=== PATIENT | female | born 1965 | race Caucasian/White ===

== ENCOUNTER 2020-07-13 13:18 | Outpatient (REF) | payer OTHER, SELFPAY ==
--- NOTE | 2020-07-13 | MM_ITS ---
EXAMINATION: MM SCREENING DIGITAL BREAST TOMOSYNTHESIS, BILATERAL CLINICAL INFORMATION: Screening. Asymptomatic. Family history breast cancer in mother, age 53. Personal history benign left breast biopsy. The lifetime risk of breast cancer based on the Tyrer-Cuzick Model is 25%. COMPARISON: Mammography: 08/15/2018; outside mammography 02/28/2017, 12/30/2014 ([facility]). TECHNIQUE: Digital breast tomosynthesis is performed in both the craniocaudal and mediolateral oblique views along with computer-aided detection (CAD). Synthesized 2D images are generated from the tomosynthesis. FINDINGS: There are scattered areas of fibroglandular density (ACR BI-RADS breast composition Category b). There are no significant masses, abnormal calcifications, or other abnormalities. Parenchymal pattern is similar to prior studies. Again, there is a stable circumscribed oval nodule mid outer right breast. There is no developing density. The axilla and skin contours are unremarkable. No significant changes from prior studies. MM/MM tomosynthesis screening BI IMPRESSION: No mammographic evidence of malignancy. ASSESSMENT: BI-RADS 2: Benign RECOMMENDATION: 1. Routine annual mammography screening. 2. The lifetime risk of breast cancer based on the Tyrer-Cuzick Model is 25%. Additional annual adjunct screening with breast MRI may be of benefit in women with a risk score of 20% or greater. This patient's information was entered into a reminder system with a target due date for their next mammogram.
== END 2020-07-13 13:19 | disposition home or self-care (01) ==
LOC: HO.MAMMO 13:18
PROVIDERS: PCP Nurse Practitioner Family; Visit Provider Nurse Practitioner Family
DX: Z12.31 Encounter for screening mammogram for malignant neoplasm of breast (principal)
CPT/HCPCS: 77063; 77067

== ENCOUNTER 2020-09-15 08:20 | Outpatient (REF) | payer OTHER, SELFPAY ==
[2020-09-15 09:33] LABS: Anion Gap 14 (12-20); Blood Urea Nitrogen 13 mg/dL (9-16); Carbon Dioxide 23 mmol/L (22-29); Chloride 104 mmol/L (96-108); Cholesterol 180 mg/dL; Estimated Glomerular Filt Rate > 60; Glucose Random 111 mg/dL (60-115); HDL Cholesterol 56 mg/dL; Potassium 4.3 mmol/l (3.3-5.1); Sodium 137 mmol/L (135-145); Triglycerides 433 mg/dL
[2020-09-15 09:39] LABS: Alanine Aminotransferase 33 U/L (0-31); Albumin Level 4.5 g/dL (3.5-5.0); Alkaline Phosphatase 118 U/L (39-117); Anion Gap 16 (12-20); Aspartate Amino Transferase 32 U/L (5-31); Bilirubin Total 0.6 mg/dL (0.0-1.0); Blood Urea Nitrogen 13 mg/dL (9-16); Calcium 9.1 mg/dL (8.4-10.2); Carbon Dioxide 22 mmol/L (22-29); Chloride 104 mmol/L (96-108); Estimated Glomerular Filt Rate > 60; Glucose Random 110 mg/dL (60-115); Potassium 4.3 mmol/l (3.3-5.1); Sodium 138 mmol/L (135-145); Total Protein 7.2 g/dL (6.5-8.0)
[2020-09-15 09:56] LABS: Thyroid Stimulating Hormone 2.23 uIU/mL (0.32-4.0)
[2020-09-16 18:33] LABS: Calcium (PTHI) 9.4 mg/dL (8.6-10.4); PTHI 140 pg/mL (14-64)
== END 2020-09-15 08:21 | disposition home or self-care (01) ==
LOC: HO.LAB 08:20
PROVIDERS: Absent Provider Internal Medicine; PCP Nurse Practitioner Family; Visit Provider Nurse Practitioner Family
DX: E03.9 Hypothyroidism, unspecified (principal); E78.2 Mixed hyperlipidemia; I10 Essential (primary) hypertension; E21.3 Hyperparathyroidism, unspecified; E04.1 Nontoxic single thyroid nodule; E55.9 Vitamin D deficiency, unspecified
CPT/HCPCS: 80048; 80053; 80061; 82306; 82330; 83735; 83970; 84100; 84443

== ENCOUNTER → 2020-09-21 07:33 | Outpatient (BNVA) | payer OTHER, SELFPAY | PROVIDERS: PCP Nurse Practitioner Family; Referring Provider Nurse Practitioner Family; Visit Provider Internal Medicine | DX: Z76.89 Persons encountering health services in other specified circumstances (principal) ==

== ENCOUNTER 2020-09-28 14:00 | Outpatient (REF) | payer OTHER, SELFPAY ==
[2020-09-28 22:20] LABS: Total Volume 24 Hour Urine 3900 mL
[2020-09-28 22:29] LABS: Creatinine, 24Hr Urine 1.4 G/Day (1.0-2.0); Creatinine, mg/dL 35.84
[2020-09-29 17:27] LABS: Calcium, 24 Hr Urine 144 mg/24 h; Calcium/Creatinine Ratio 97 mg/g creat (30-275); Creatinine 24Hr Urine 1.48 g/24 h (0.50-2.15)
== END 2020-09-28 14:01 | disposition home or self-care (01) ==
LOC: HO.LNP 14:00
PROVIDERS: Visit Provider Internal Medicine
DX: E21.3 Hyperparathyroidism, unspecified (principal)
CPT/HCPCS: 82340; 82570

== ENCOUNTER 2020-10-07 09:43 | Outpatient (REF) | payer OTHER, SELFPAY ==
[2020-10-07 10:08] LABS: COVID-19 Test Negative (Negative); IDNOW Serial# 55D5AD1C
== END 2020-10-07 09:44 | disposition home or self-care (01) ==
LOC: HO.EMPCOV 09:43
PROVIDERS: Visit Provider Internal Medicine
DX: Z20.822 Contact with and (suspected) exposure to COVID-19 (principal)
CPT/HCPCS: 36415; 87635; C9803

== ENCOUNTER 2020-10-19 11:37 | Outpatient (REF) | payer OTHER, SELFPAY ==
[2020-10-19 11:51] LABS: COVID-19 Test Negative (Negative)
== END 2020-10-19 11:38 | disposition home or self-care (01) ==
LOC: HO.EMPCOV 11:37
PROVIDERS: Visit Provider Internal Medicine
DX: Z20.822 Contact with and (suspected) exposure to COVID-19 (principal)
CPT/HCPCS: 36415; 87635; C9803

== ENCOUNTER 2020-10-21 10:32 | Outpatient (REF) | payer OTHER, SELFPAY ==
[2020-10-21 10:49] LABS: COVID-19 Test Negative (Negative)
== END 2020-10-21 10:33 | disposition home or self-care (01) ==
LOC: HO.EMPCOV 10:32
PROVIDERS: Visit Provider Internal Medicine
DX: Z20.822 Contact with and (suspected) exposure to COVID-19 (principal)
CPT/HCPCS: 36415; 87635; C9803

== ENCOUNTER → 2020-11-18 08:58 | Outpatient (BNVA) | payer OTHER, SELFPAY | PROVIDERS: PCP Nurse Practitioner Family; Visit Provider Internal Medicine ==

== ENCOUNTER 2020-12-02 15:47 | Outpatient (REF) | payer OTHER, SELFPAY ==
[2020-12-02 16:48] LABS: Albumin Level 4.4 g/dL (3.5-5.0); Calcium 9.3 mg/dL (8.4-10.2); Estimated Glomerular Filt Rate > 60; Phosphorus 4.2 mg/dL (2.7-4.5)
[2020-12-02 17:13] LABS: Free T4 (Free Thyroxine) 1.02 ng/dL (0.71-1.85); Thyroid Stimulating Hormone 2.04 uIU/mL (0.32-4.0); Vitamin D 25-OH Total 42.9 ng/mL (>30)
[2020-12-03 13:42] LABS: Calcium (PTHI) 9.4 mg/dL (8.6-10.4); PTHI 148 pg/mL (14-64)
[2020-12-03 18:01] LABS: Thyroglobulin Antibodies <1 IU/mL (< or = 1); Thyroid Peroxidase Antibodies 1 IU/mL (<9)
== END 2020-12-02 15:48 | disposition home or self-care (01) ==
LOC: HO.LAB 15:47
PROVIDERS: PCP Nurse Practitioner Family; Visit Provider Internal Medicine
DX: E55.9 Vitamin D deficiency, unspecified (principal); E06.3 Autoimmune thyroiditis; E04.2 Nontoxic multinodular goiter; E21.3 Hyperparathyroidism, unspecified
CPT/HCPCS: 36415; 82040; 82306; 82310; 82330; 82565; 83970; 84100; 84439; 84443; 86376; 86800

== ENCOUNTER → 2021-01-13 07:43 | Outpatient (BNVA) | payer OTHER, SELFPAY | PROVIDERS: PCP Nurse Practitioner Family; Visit Provider Internal Medicine ==

== ENCOUNTER 2021-01-21 09:01 | Outpatient (RCR) | payer OTHER, SELFPAY ==
[2021-01-21 09:11] VITALS: BP 124/76
== END 2021-02-18 12:34 | disposition other institution (70) ==
LOC: HO.PT 09:01
PROVIDERS: PCP Nurse Practitioner Family; Visit Provider Podiatrist Foot & Ankle Surgery
DX: M79.672 Pain in left foot (principal); M79.671 Pain in right foot
CPT/HCPCS: 97110; 97161

== ENCOUNTER 2021-07-29 13:38 | Outpatient (REF) | payer OTHER, SELFPAY ==
--- NOTE | ~2021-07-29 | MM_ITS ---
EXAMINATION: BONE DENSITOMETRY CLINICAL INDICATION: Other specified disorders of bone density and structure. COMPARISON: Baseline BD dated 06/27/2019. TECHNIQUE: Using a [employer] DXA System (software version: 13.1) manufactured by [employer], dual-energy x-ray absorptiometry was performed of the lumbar spine, left hip, and left forearm radius 33%. The images are of good technical quality. Summary results are attached. FINDINGS: AP SPINE L1-L4: Current: BMD 0.952 g/cm2, Z-score -1.3, T-score -1.9, osteopenia, 2.9% decrease from baseline (<5% change is not significant). Baseline: BMD 0.980 g/cm2. LEFT FEMUR, NECK: Current: BMD 0.836 g/cm2, Z-score -0.6, T-score -1.5, osteopenia. Baseline: BMD 0.907 g/cm2. LEFT FEMUR, TOTAL: Current: BMD 0.930 g/cm2, Z-score -0.1, T-score -0.6, normal, 3.5% decrease from baseline (<5% change is not significant). Baseline: BMD 0.964 g/cm2. LEFT FOREARM RADIUS 33%: BMD 0.680 g/cm2, Z-score -1.8, T-score -2.2, osteopenia, 8.5% decrease from baseline (<5% change is not significant). Baseline: BMD 0.743 g/cm2. IDENTIFIED RISK FACTORS: Hyperparathyroidism, low calcium intake, thiazide, menopause. HISTORY OF FRACTURE: Fingers. MEDICATIONS: None listed. MM/XR DEXA appendicular skeleton IMPRESSION: 1. DIAGNOSIS: Osteopenia based on the lowest T-score value of -2.2 in the forearm radius 33% applying World Health Organization criteria. 2. 10-YEAR FRACTURE RISK PREDICTION, FRAX: Major osteoporotic fracture (clinical spine, forearm, hip or shoulder) 10.6%. Hip fracture 0.9%. 3. Treatment Recommendations: NOF guidelines recommend consideration for treatment in postmenopausal women and men age 50 and older presenting with the following: -A hip or vertebral (clinical or morphometric) fracture. -T-score less than or equal to -2.5 at the femoral neck or spine after appropriate evaluation to exclude secondary causes. -Low bone mass at the hip or spine and a 10-year fracture probability by FRAX of greater than or equal to 3% for hip fracture or greater than or equal to 20% for major osteoporotic fracture based on the [place] adapted WHO algorithm. 4. Other Recommendations: All treatment decisions require clinical judgment and consideration of individual patient factors, including patient preferences, comorbidities, previous drug use, risk factors not captured in the FRAX model (e.g. frailty, falls, vitamin D deficiency, increased bone turnover, interval significant decline in bone density) and possible under or overestimation of fracture risk by FRAX. Additional medical evaluation for secondary cause of low bone mineral density may be appropriate. FUTURE SCAN RECOMMENDATION: People with diagnosed cases of osteoporosis or at high risk for fracture should have regular bone mineral density tests. For patients eligible for Medicare, routine testing is allowed once every 2 years. The testing frequency can be increased to one year for patients who have rapidly progressing disease, those who are receiving or discontinuing medical therapy to restore bone mass, or have additional risk factors.
== END 2021-07-29 13:39 | disposition home or self-care (01) ==
LOC: HO.MAMMO 13:38
PROVIDERS: PCP Nurse Practitioner Family; Visit Provider Internal Medicine
DX: Z13.820 Encounter for screening for osteoporosis (principal); M85.80 Other specified disorders of bone density and structure, unspecified site; E21.3 Hyperparathyroidism, unspecified; Z78.0 Asymptomatic menopausal state; Z79.899 Other long term (current) drug therapy
CPT/HCPCS: 77081

== ENCOUNTER 2021-09-15 13:19 | Outpatient (REF) | payer OTHER, SELFPAY ==
--- NOTE | ~2021-09-15 | MM_ITS ---
EXAMINATION: MM SCREENING DIGITAL BREAST TOMOSYNTHESIS, BILATERAL CLINICAL INFORMATION: Screening. Asymptomatic. Family history breast cancer, mother. The lifetime risk of breast cancer based on the Tyrer-Cuzick Model is 25%. COMPARISON: Mammography: 07/13/2020, 08/07/2018, 02/28/2017 TECHNIQUE: Digital breast tomosynthesis is performed in both the craniocaudal and mediolateral oblique views along with computer-aided detection (CAD). Synthesized 2D images are generated from the tomosynthesis. Additional exaggerated right CC view is provided. FINDINGS: There are scattered areas of fibroglandular density (ACR BI-RADS breast composition Category b). There are no significant masses, abnormal calcifications, or other abnormalities. Parenchymal pattern is similar to prior studies. There is no developing density or architectural abnormality. The axilla and skin contours are unremarkable. No significant changes. MM/MM tomosynthesis screening BI IMPRESSION: No mammographic evidence of malignancy. ASSESSMENT: BI-RADS 1: Negative RECOMMENDATION: 1. Routine annual mammography screening. 2. The lifetime risk of breast cancer based on the Tyrer-Cuzick Model is 25%. Additional annual adjunct screening with breast MRI may be of benefit in women with a risk score of 20% or greater. This patient's information was entered into a reminder system with a target due date for their next mammogram.
== END 2021-09-15 13:20 | disposition home or self-care (01) ==
LOC: HO.MAMMO 13:19
PROVIDERS: Visit Provider Nurse Practitioner Family
DX: Z12.31 Encounter for screening mammogram for malignant neoplasm of breast (principal)
CPT/HCPCS: 77063; 77067

== ENCOUNTER 2021-10-07 08:20 | Outpatient (REF) | payer OTHER, SELFPAY ==
[2021-10-07 09:33] LABS: Anion Gap 12 (12-20); Blood Urea Nitrogen 12 mg/dL (9-16); Calcium 9.2 mg/dL (8.4-10.2); Carbon Dioxide 25 mmol/L (22-29); Chloride 107 mmol/L (96-108); Cholesterol 188 mg/dL; Estimated Glomerular Filt Rate > 60; Glucose Random 107 mg/dL (60-115); HDL Cholesterol 55 mg/dL; LDL Cholesterol Calculated 64 mg/dl; Potassium 4.4 mmol/L (3.3-5.1); Sodium 140 mmol/L (135-145); Triglycerides 346 mg/dL
[2021-10-07 09:34] LABS: Alanine Aminotransferase 52 U/L (0-31); Alkaline Phosphatase 99 U/L (39-117); Anion Gap 15 (12-20); Aspartate Amino Transferase 50 U/L (5-31); Bilirubin Total 0.5 mg/dL (0.0-1.0); Blood Urea Nitrogen 11 mg/dL (9-16); Calcium 9.1 mg/dL (8.4-10.2); Carbon Dioxide 24 mmol/L (22-29); Chloride 107 mmol/L (96-108); Estimated Glomerular Filt Rate > 60; Glucose Random 102 mg/dL (60-115); Phosphorus 4.1 mg/dL (2.7-4.5); Potassium 4.5 mmol/L (3.3-5.1); Sodium 141 mmol/L (135-145); Total Protein 6.7 g/dL (6.5-8.0)
[2021-10-07 09:58] LABS: Thyroid Stimulating Hormone 2.86 uIU/mL (0.32-4.0); Vitamin D 25-OH Total 19.8 ng/mL (>30)
[2021-10-08 13:06] LABS: PTHI 139 pg/mL (14-64)
[2021-10-13 16:10] LABS: N-Telopeptide 49 (see note); NTXCreaRU 81 mg/dL (20-275)
== END 2021-10-07 08:21 | disposition home or self-care (01) ==
LOC: HO.LAB 08:20
PROVIDERS: Absent Provider Nurse Practitioner Family; PCP Nurse Practitioner Family; Visit Provider Internal Medicine
DX: E04.2 Nontoxic multinodular goiter (principal); E21.3 Hyperparathyroidism, unspecified; I10 Essential (primary) hypertension; E55.9 Vitamin D deficiency, unspecified
CPT/HCPCS: 36415; 80048; 80053; 80061; 82306; 82523; 83970; 84100; 84439; 84443

== ENCOUNTER → 2021-12-15 12:58 | Outpatient (BNVA) | payer OTHER, SELFPAY | PROVIDERS: PCP Nurse Practitioner Family; Visit Provider Internal Medicine | DX: Z13.89 Encounter for screening for other disorder (principal) ==

== ENCOUNTER → 2021-12-27 11:23 | Outpatient (BNVA) | payer OTHER, SELFPAY | PROVIDERS: PCP Nurse Practitioner Family; Visit Provider Physician Assistant | DX: Z13.89 Encounter for screening for other disorder (principal) ==

== ENCOUNTER 2022-01-07 10:17 | Outpatient (REF) | payer OTHER, SELFPAY ==
[2022-01-07 11:43] LABS: Alanine Aminotransferase 40 U/L (0-31); Albumin Level 4.5 g/dL (3.5-5.0); Alkaline Phosphatase 101 U/L (39-117); Anion Gap 13 (12-20); Aspartate Amino Transferase 44 U/L (5-31); Bilirubin Total 0.7 mg/dL (0.0-1.0); Blood Urea Nitrogen 11 mg/dL (9-16); C Reactive Protein 0.09 mg/dL (< or = 0.50); Carbon Dioxide 27 mmol/L (22-29); Chloride 101 mmol/L (96-108); Erythrocyte Sedimentation Rate 7 MM/HR (0-20); Estimated Glomerular Filt Rate > 60; Glucose Random 97 mg/dL (60-115); Potassium 4.6 mmol/L (3.3-5.1); Sodium 136 mmol/L (135-145); Total Protein 7.2 g/dL (6.5-8.0)
[2022-01-07 12:00] LABS: HBS Num1 0.63 mIU/mL (0-7.99); HBc Num1 0.05 S/CO (0.00-0.79); HBsAGNum1 0.25 S/CO (0.00-0.99); Hepatitis A Antibody IgM 0.27 Index (0-0.79); Hepatitis B Core Antibody Nonreactive (Nonreactive); Hepatitis B Surface Antigen Negative (Negative); ~HepC Num1 0.09 S/CO (0.00-0.79); ~Hepatitis A Antibody IgM Nonreactive (Nonreactive); ~Hepatitis B Surface Antibody NONREACTIVE (Nonreactive); ~Hepatitis C Antibody Nonreactive (Nonreactive)
[2022-01-08 14:42] LABS: Alpha 1 Anti-trypsin 114 mg/dL (83-199); Ceruloplasmin 29 mg/dL (18-53)
[2022-01-10 19:32] LABS: Anti Nuclear Antibody Screen NEGATIVE (NEGATIVE)
[2022-01-11 21:27] LABS: Endomysial IgA Antibody Negative (Negative)
[2022-01-12 13:11] LABS: Smooth Muscle Antibody <20 U (<20)
[2022-01-13 12:32] LABS: Mitochondrial Antibodies NEGATIVE (NEGATIVE)
[2022-01-15 14:07] LABS: Transglutaminase IgA <1.0 U/mL
== END 2022-01-07 10:18 | disposition home or self-care (01) ==
LOC: HO.LAB 10:17
PROVIDERS: PCP Nurse Practitioner Family; Visit Provider Physician Assistant
DX: R74.8 Abnormal levels of other serum enzymes (principal); R19.7 Diarrhea, unspecified; R74.01 Elevation of levels of liver transaminase levels; R79.89 Other specified abnormal findings of blood chemistry
CPT/HCPCS: 36415; 80053; 82103; 82390; 85652; 86015; 86038; 86039; 86140; 86231; 86255; 86256; 86364; 86704; 86706; 86709; 86803; 87340

== ENCOUNTER 2022-02-03 08:23 | Outpatient (REF) | payer OTHER, SELFPAY ==
--- NOTE | ~2022-02-03 | US_ITS ---
EXAMINATION: US COMPLETE ABDOMEN WITH LIVER ELASTOGRAPHY CLINICAL INFORMATION: Abnormal LFTs. COMPARISON: Ultrasound 08/02/2018 TECHNIQUE: Real-time imaging of the abdominal viscera. Noninvasive ultrasound liver fibrosis assessment is performed using [employer] point quantification shear wave elastography (2D-SWE) with a C5-2 MHz transducer. Multiple elastography samples are obtained. FINDINGS: PANCREAS: Normal. The visualized pancreatic head and body are normal in appearance. The remainder of the pancreas is obscured from visualization by the overlying bowel gas. ABDOMINAL AORTA: The proximal and distal aortic segments are normal in caliber. Mid abdominal aorta is normal caliber. INFERIOR VENA CAVA: Visualized portions are normal. LIVER: Normal. The liver demonstrates normal size, contour and echogenicity. No focal lesion or intrahepatic biliary duct dilatation. The right lobe measures 15.1 cm in length. The left lobe measures 10.2 cm in length. Portal flow is hepatopetal. Shear wave liver elastography median stiffness is 1.96 m/s (reference: Normal median stiffness is 1.3 m/s or less). IQR/median stiffness to assess sampling precision is 0.11 (reference: Good quality data set is IQR/median stiffness of 0.15 or less). GALLBLADDER: Normal. The gallbladder is physiologically distended without evidence of stones, sludge, polyps, wall thickening or pericholecystic fluid. COMMON BILE DUCT: Normal in caliber measuring 0.7 cm in diameter. RIGHT KIDNEY: Normal. No hydronephrosis. No renal calculi or focal parenchymal lesions. The kidney measures 11.0 cm in maximum dimension. LEFT KIDNEY: Normal. No hydronephrosis. No renal calculi or focal parenchymal lesions. The kidney measures 10.9 cm in maximum dimension. Slightly lobulated and duplicated renal artery. SPLEEN: Normal. The spleen measures 7.2 cm in maximum dimension. FREE FLUID: None. US/US abdomen comp w elastography IMPRESSION: 1. Slightly lobulated duplicated renal artery. No echogenic stones or hydronephrosis. 2. Liver Elastography: Median liver stiffness 1.96 m/s corresponds to cACLD suggestive. REFERENCE: Society of Radiologists in Ultrasound Liver Stiffness Thresholds (2020): LIVER STIFFNESS THRESHOLDS: *Liver Stiffness equal or less than 1.3 m/s: High probability of being normal. *Liver Stiffness less than 1.7 m/s: In the absence of other known clinical signs, rules out compensated advanced chronic liver disease. *Liver Stiffness 1.7-2.1 m/s: Suggestive of compensated advanced chronic liver disease but need further test for confirmation. *Liver Stiffness over 2.1 m/s: Rules in compensated advanced chronic liver disease. *Liver Stiffness over 2.4 m/s: Suggestive of clinically significant portal hypertension. QUALITY OF DATA SET: *IQR/Median value equal or less than 0.15 implies a quality data set. *IQR/Median value over 0.15 implies a poor quality data set. SIGNIFICANT CHANGE FROM PRIOR EXAM: Significant change if liver stiffness measurement is 10% or greater from prior exam. OTHER CONSIDERATIONS: The stage of liver fibrosis may be overestimated in the setting of acute hepatitis, liver inflammation, elevated liver function tests, hepatic vascular congestion, obstructive cholestasis, non-fasting state, and infiltrative diseases such as amyloidosis and lymphoma. In some patients with NAFLD, the liver stiffness thresholds for compensated advanced chronic liver disease may be lower. In causes other than viral hepatitis and NAFLD, liver stiffness thresholds are not well established.
== END 2022-02-03 08:24 | disposition home or self-care (01) ==
LOC: HO.US 08:23
PROVIDERS: Visit Provider Physician Assistant
DX: R79.89 Other specified abnormal findings of blood chemistry (principal)
CPT/HCPCS: 76705; 76981

== ENCOUNTER 2022-12-01 11:08 | Outpatient (REF) | payer OTHER, SELFPAY ==
[2022-12-01 12:48] LABS: Alanine Aminotransferase 30 U/L (0-31); Albumin Level 4.7 g/dL (3.5-5.0); Alkaline Phosphatase 103 U/L (39-117); Anion Gap 13 (12-20); Aspartate Amino Transferase 30 U/L (5-31); Bilirubin Total 0.6 mg/dL (0.0-1.0); Blood Urea Nitrogen 10 mg/dL (9-16); Calcium 9.3 mg/dL (8.4-10.2); Carbon Dioxide 28 mmol/L (22-29); Chloride 101 mmol/L (96-108); Estimated Glomerular Filt Rate > 60; Glucose Random 100 mg/dL (60-115); Phosphorus 3.1 mg/dL (2.7-4.5); Potassium 4.2 mmol/L (3.3-5.1); Sodium 138 mmol/L (135-145); Total Protein 7.4 g/dL (6.5-8.0)
[2022-12-01 13:13] LABS: Free T4 (Free Thyroxine) 1.19 ng/dL (0.71-1.85); Thyroid Stimulating Hormone 1.94 uIU/mL (0.32-4.0)
[2022-12-05 14:04] LABS: Calcium (PTHI) 9.8 mg/dL (8.6-10.4); PTHI 87 pg/mL (16-77)
[2022-12-08 18:54] LABS: N-Telopeptide 27 (see note); NTXCreaRU 22 mg/dL (20-275)
== END 2022-12-01 11:09 | disposition home or self-care (01) ==
LOC: HO.LAB 11:08
PROVIDERS: PCP Nurse Practitioner Family; Visit Provider Internal Medicine
DX: E55.9 Vitamin D deficiency, unspecified (principal); E06.3 Autoimmune thyroiditis; E04.2 Nontoxic multinodular goiter; E21.3 Hyperparathyroidism, unspecified
CPT/HCPCS: 36415; 80053; 82306; 82523; 83970; 84100; 84439; 84443

== ENCOUNTER → 2022-12-15 14:19 | Outpatient (BNVA) | payer OTHER, SELFPAY | PROVIDERS: PCP Nurse Practitioner Family; Visit Provider Internal Medicine | DX: Z13.89 Encounter for screening for other disorder (principal) ==

== ENCOUNTER 2022-12-19 14:06 | Outpatient (REF) | payer OTHER, SELFPAY ==
--- NOTE | ~2022-12-19 | MM_ITS ---
EXAMINATION: MM SCREENING DIGITAL BREAST TOMOSYNTHESIS, BILATERAL CLINICAL INFORMATION: Screening. Asymptomatic. Family history breast cancer, mother. The lifetime risk of breast cancer based on the Tyrer-Cuzick Model is 18%. COMPARISON: Mammography: 09/15/2021, 07/13/2020, 08/15/2018 TECHNIQUE: Digital breast tomosynthesis is performed in both the craniocaudal and mediolateral oblique views along with computer-aided detection (CAD). Synthesized 2D images are generated from the tomosynthesis. FINDINGS: There are scattered areas of fibroglandular density (ACR BI-RADS breast composition Category b). There are no significant masses, abnormal calcifications, or other abnormalities. No architectural abnormality or developing density or significant change from prior studies. The axilla are unremarkable. Skin contours are smooth. MM/MM tomosynthesis screening BI IMPRESSION: No mammographic evidence of malignancy. ASSESSMENT: BI-RADS 1: Negative RECOMMENDATION: Routine annual mammography screening. This patient's information was entered into a reminder system with a target due date for their next mammogram.
== END 2022-12-19 14:07 | disposition home or self-care (01) ==
LOC: HO.MAMMO 14:06
PROVIDERS: PCP Nurse Practitioner Family; Visit Provider Nurse Practitioner Family
DX: Z12.31 Encounter for screening mammogram for malignant neoplasm of breast (principal)
CPT/HCPCS: 77063; 77067

== ENCOUNTER 2023-01-04 08:51 | Outpatient (REF) | payer OTHER, SELFPAY ==
--- NOTE | ~2023-01-04 | US_ITS ---
EXAMINATION: US THYROID CLINICAL INFORMATION: Nontoxic multinodular goiter. COMPARISON: Ultrasound soft tissue head/neck thyroid dated 03/11/2020 and 09/25/2019. TECHNIQUE: Linear transducer grayscale and color Doppler examination with attention to the region of the thyroid. FINDINGS: SIZE: Measurements of the thyroid lobes and nodules are given in sagittal, anteroposterior and transverse dimensions respectively. Right Thyroid Lobe: 3.5 x 1.2 x 1.2 cm, volume 2.6 mL. Previously 3.3 x 1.3 x 1.2 cm, volume 2.7 mL. Parenchyma: The gland echotexture is homogeneous. Thyroid vascularity is normal. Left Thyroid Lobe: 3.1 x 0.7 x 1.3 cm, volume 1.5 mL. Previously 2.9 x 0.9 x 1.2 cm, volume 1.6 mL. Parenchyma: The gland echotexture is homogeneous. Thyroid vascularity is normal. Isthmus: 0.2 cm in maximum AP dimension. Previously 0.2 cm. Estimated total number of nodules greater than or equal to 1 cm: 0. [place]pper nodules are described as follows: 1. Location: Left mid. Size: 1.0 x 0.4 x 0.5 cm, volume 0.1 mL. Previously: 1.0 x 0.5 x 0.5 cm, volume 0.1 mL. Nodule characteristics: Composition: Solid (2). Echogenicity: Hypoechoic (2). Shape: Not taller than wide (0). Margins: Ill-defined (0). Echogenic Foci: None (0). ACR TI-RADS total points: 4 ACR TI-RADS category: 4 Significant change in size (>/= 20% in 2 dimensions and minimal increase of 2 mm or 50% or greater increase in volume): No Change in features: No Change in ACR TI-RADS risk category: No NODES: No lymphadenopathy is seen in the tissue surrounding the thyroid gland. US/US thyroid IMPRESSION: Stable left thyroid nodule. According to TI RADS criteria, continued ultrasound follow-up in one, 2 and 4 years recommended. ACR TI-RADS RECOMMENDATION REFERENCE: Ultrasound-guided fine-needle aspiration, followup ultrasound, no further follow up. * TR1 (0 point) and TR2 (2 points): No FNA or follow up * TR3 (3 points): FNA if more than or equal to 2.5 cm in maximum dimension, followup ultrasound in 1, 3 and 5 years if 1.5 to 2.4 cm in maximum dimension. * TR4 (4-6 points): FNA if more than or equal to 1.5 cm in maximum dimension, followup ultrasound in 1, 2, 3 and 5 years if 1 to 1.4 cm in maximum dimension. * TR5 (more than or equal to 7 points): FNA if more than or equal to 1 cm in maximum dimension, followup ultrasound every year for 5 years if 0.5 to 0.9 cm in maximum dimension. * TR3, TR4 or TR5 nodules that are below the size threshold for follow up receive no follow up.
== END 2023-01-04 08:52 | disposition home or self-care (01) ==
LOC: HO.US 08:51
PROVIDERS: PCP Nurse Practitioner Family; Visit Provider Internal Medicine
DX: E04.2 Nontoxic multinodular goiter (principal)
CPT/HCPCS: 76536

== ENCOUNTER 2023-01-24 08:10 | Outpatient (REF) | payer OTHER, SELFPAY | END 2023-01-24 08:11 | disposition home or self-care (01) | LOC: HO.LAB 08:10 | PROVIDERS: PCP Nurse Practitioner Family; Visit Provider Nurse Practitioner Family | DX: Z13.89 Encounter for screening for other disorder (principal) ==

== ENCOUNTER 2023-02-01 08:19 | Outpatient (REF) | payer OTHER, SELFPAY ==
[2023-02-01 10:14] LABS: Anion Gap 16 (12-20); Blood Urea Nitrogen 13 mg/dL (9-16); Calcium 9.4 mg/dL (8.4-10.2); Carbon Dioxide 25 mmol/L (22-29); Chloride 102 mmol/L (96-108); Cholesterol 199 mg/dL; Estimated Glomerular Filt Rate > 60; Glucose Random 81 mg/dL (60-115); HDL Cholesterol 64 mg/dL; LDL Cholesterol Calculated 63 mg/dl; Potassium 4.5 mmol/L (3.3-5.1); Sodium 138 mmol/L (135-145); Triglycerides 362 mg/dL
[2023-02-01 10:30] LABS: Thyroid Stimulating Hormone 4.29 uIU/mL (0.32-4.0)
== END 2023-02-01 08:20 | disposition home or self-care (01) ==
LOC: HO.LAB 08:19
PROVIDERS: PCP Nurse Practitioner Family; Visit Provider Nurse Practitioner Family
DX: E03.9 Hypothyroidism, unspecified (principal); I10 Essential (primary) hypertension
CPT/HCPCS: 36415; 80048; 80061; 84443

== ENCOUNTER 2023-06-02 12:59 | Outpatient (AMB) | payer OTHER, SELFPAY ==
--- NOTE | 2023-06-02 08:39 | A.OFFVIS_ITS ---
Intake Intake Visit Reasons: LDCT SD Allergies No Known Allergies [No Known Allergies*] Allergy (Verified 12/15/22 14:34) HPI LDCT SD HPI Details Initial visit for this 58yo former smoker with a 25PYH. Patient started smoking at age 13 for 42 years at 1/2-1ppd. She quit in 2019 . Denies marijuana use. Denies second hand smoke exposure. Denies exposure to chemicals or substances like asbestos. . Denies known family history of lung cancer. Reports personal history of cancers. History BCC skin cancer on cheek. Denies chest CT in last year. . Denies recent travel outside the . Has been to [facility] and [facility]. Denies recent respiratory illness or recent hospitalization for respiratory issues. Denies testing positive for COVID. Admits receiving COVID Vaccine. x 2. . Denies fever, chills, new/worsening cough, hemoptysis, hoarseness or dysphagia. Denies significant chest pain, significant dyspnea or unintentional weight loss. Patient Lung Cancer Screening Questionnaire reviewed with patient by provider. . Shared Decision Making Completed. Patient meets criteria. Discussed in detail with patient, the risk vs benefit of LDCT screening. Patient consents to proceed with scan. Discussed smoking cessation. COUNTS INCLUDE 234 BEDS AT THE [facility] Medical History (Updated 06/02/23 @ 13:04 by Starr Gee PA-C) Personal history of nicotine dependence Chuck's disease Multinodular thyroid Hyperparathyroidism Vitamin D deficiency Osteopenia (~2018) Postmenopausal (~2015) Abnormal LFTs Transaminitis Surgical History (Updated 05/05/23 @ 12:26 by Starr Gee PA-C) History of colonoscopy History of lumpectomy Family History Father CVD (cardiovascular disease) Mother Breast cancer Sister Hyperparathyroidism Social History (Updated 06/02/23 @ 13:04 by Starr Gee PA-C) Household Members: None Alcohol intake: current Alcohol intake frequency: holidays/special occasions only Patient Tobacco Use Status: Former Tobacco user Quit Date: 2019 Years Smoked: onset 13yo, 1/2-1ppd x 42yrs, 25pyh - quit 2019 Current occupational status: employed Current occupation: [employer] [place] Assessment & Plan Assessment & Plan (1) Personal history of nicotine dependence: Comment: (former smoker, onset 13yo, 1/2-1ppd x 42yrs, 25pyh - quit 2019) Code(s): Z87.891 - Personal history of nicotine dependence Plan: - SDM visit completed today in office. - Patient meets criteria for LDCT for lung cancer screening purposes and is asymptomatic. - Smoking cessation counseling offered. Patients can always call [phone]. - Will arrange for a LDCT scan of the chest for screening purposes at [facility]. - Risks, benefits, and alternatives were discussed in detail and the patient agrees to proceed. - Risks discussed include but are not limited to: radiation exposure, anxiety during testing and while awaiting results, false negatives, false positives and possibility of additional intervention such as further imaging or surgical procedures for benign disease. - Benefits are obviously detection of lung cancer at an early stage which can lead to improved outcomes. - Discussed the importance of screening program compliance with adherence to yearly LDCT scan as scheduled - or sooner interval scans for personalized screening regimen. - Discussed follow up plan. Our office will send a letter discussing results and if needed set up phone call and office visit based on CT findings. - Patient educated on results categorization and the management decisions for suspicious findings potentially found on the screening LDCT scan. Any patient with a Lung RADS score of 3 or 4 will be reviewed by a multidisciplinary team at [facility] to form a plan of action in regards to scan findings. - If further work up is warranted for a suspicious lung finding this will be followed by the Lung Cancer Screening program in conjunction with the Thoracic Surgery Department at [facility]. - A copy of the office note and LDCT will be sent to the patient's PCP - as well as documentation on any associated further plans of care. - Incidental findings on LDCT are the PCP's responsibility. These findings are indicated with an S finding on the LDCT Assessment. A note discussing the findings will be sent to the PCP who is then responsible for further management. - All questions answered.? Coding Level of Care Code Lung Cancer Screening [id number] Diagnoses Personal history of nicotine dependence Z87.891
== END 2023-06-02 13:25 | disposition home or self-care (01) ==
PROVIDERS: PCP Nurse Practitioner Family; Visit Provider Physician Assistant Medical
DX: Z87.891 Personal history of nicotine dependence (principal)
CPT/HCPCS: G0296

== ENCOUNTER 2023-06-02 13:18 | Outpatient (REF) | payer OTHER, SELFPAY ==
--- NOTE | ~2023-06-02 | CT_ITS ---
EXAMINATION: CT CHEST SCREENING CLINICAL INFORMATION: Personal history of nicotine dependence. COMPARISON: None available. TECHNIQUE: Multidetector volumetric CT imaging of the chest is performed without contrast using low dose technique. Additional 2D coronal and sagittal reformatted images and axial 3D maximum intensity projection (MIP) images are generated on the CT workstation. This CT examination was performed using dose optimization techniques as appropriate, variously including the following: *Automated exposure control *Adjustment of mA and/or kV according to patient size (this includes techniques or standardized protocols for targeted exams where dose is matched to indication/reason for exam; i.e. extremities or head) *Use of iterative reconstruction technique DLP: 49 mGy-cm FINDINGS: LUNGS: The central airways are patent. No consolidation. No pneumothorax. Inferior anterior right upper lobe calcified granuloma. Minimal pleural thickening along the anterior aspect of the right middle lobe. No pleural effusion. No suspicious parenchymal pulmonary nodule. MEDIASTINUM: Normal heart size. No pericardial effusion. No mediastinal lymphadenopathy. The visualized portion of the thyroid gland is unremarkable. CORONARY ARTERY CALCIFICATION: None visualized on this study. AXILLA: No lymphadenopathy. UPPER ABDOMEN: Unremarkable OSSEOUS STRUCTURES: No acute or suspicious osseous abnormality. CT/CT lung screening IMPRESSION: No suspicious pulmonary nodules. ASSESSMENT: Lung-RADS category 1: Negative RECOMMENDATION: Routine annual low-dose CT screening in 12 months.
== END 2023-06-02 13:19 | disposition home or self-care (01) ==
LOC: HO.CT 13:18
PROVIDERS: PCP Nurse Practitioner Family; Visit Provider Physician Assistant Medical
DX: Z12.2 Encounter for screening for malignant neoplasm of respiratory organs (principal); Z87.891 Personal history of nicotine dependence
CPT/HCPCS: 71271; G0296

== ENCOUNTER 2023-08-08 08:27 | Outpatient (REF) | payer OTHER, SELFPAY ==
--- NOTE | ~2023-08-08 | MM_ITS ---
EXAMINATION: BONE DENSITOMETRY CLINICAL INDICATION: Encounter for screening for osteoporosis. COMPARISON: Previous BD dated 07/29/2021 and baseline BD dated 06/27/2019. TECHNIQUE: Using a [employer] DXA System (software version: 13.1) manufactured by [employer], dual-energy x-ray absorptiometry was performed of the lumbar spine, left hip, and left forearm radius 33%. The images are of good technical quality. Summary results are attached. FINDINGS: LEFT FEMUR, NECK: Current: BMD 0.881 g/cm2, Z-score -0.2, T-score -1.1, osteopenia. Prior: BMD 0.836 g/cm2. Baseline: BMD 0.907 g/cm2. LEFT FEMUR, TOTAL: Current: BMD 0.958 g/cm2, Z-score 0.1, T-score -0.4, normal, 3.0% increase from previous, 0.6% decrease from baseline (<5% change is not significant). Prior: BMD 0.930 g/cm2. Baseline: BMD 0.964 g/cm2. AP SPINE L1-L4: Current: BMD 0.930 g/cm2, Z-score -1.4, T-score -2.1, osteopenia, 2.3% decrease from previous, 5.1% decrease from baseline (<5% change is not significant). Prior: BMD 0.952 g/cm2. Baseline: BMD 0.980 g/cm2. LEFT FOREARM RADIUS 33%: BMD 0.649 g/cm2, Z-score -1.9, T-score -2.6, osteoporosis, 4.6% decrease from previous, 12.7% decrease from baseline (<5% change is not significant). Prior: BMD 0.680 g/cm2. Baseline: BMD 0.743 g/cm2. IDENTIFIED RISK FACTORS: Menopause. HISTORY OF FRACTURE: None listed. MEDICATIONS: Calcium supplements or multivitamin, vitamin D. MM/XR DEXA appendicular skeleton IMPRESSION: 1. DIAGNOSIS: Osteoporosis based on the lowest T-score value of -2.6 in the forearm radius 33% applying World Health Organization criteria. 2. 10-YEAR FRACTURE RISK PREDICTION, FRAX: According to the guidelines, FRAX calculation should only be performed on patients in the osteopenia bone density category. Therefore, FRAX was not performed on this patient. 3. Treatment Recommendations: NOF guidelines recommend consideration for treatment in postmenopausal women and men age 50 and older presenting with the following: -A hip or vertebral (clinical or morphometric) fracture. -T-score less than or equal to -2.5 at the femoral neck or spine after appropriate evaluation to exclude secondary causes. -Low bone mass at the hip or spine and a 10-year fracture probability by FRAX of greater than or equal to 3% for hip fracture or greater than or equal to 20% for major osteoporotic fracture based on the [place] adapted WHO algorithm. 4. Other Recommendations: All treatment decisions require clinical judgment and consideration of individual patient factors, including patient preferences, comorbidities, previous drug use, risk factors not captured in the FRAX model (e.g. frailty, falls, vitamin D deficiency, increased bone turnover, interval significant decline in bone density) and possible under or overestimation of fracture risk by FRAX. Additional medical evaluation for secondary cause of low bone mineral density may be appropriate. FUTURE SCAN RECOMMENDATION: People with diagnosed cases of osteoporosis or at high risk for fracture should have regular bone mineral density tests. For patients eligible for Medicare, routine testing is allowed once every 2 years. The testing frequency can be increased to one year for patients who have rapidly progressing disease, those who are receiving or discontinuing medical therapy to restore bone mass, or have additional risk factors.
== END 2023-08-08 08:28 | disposition home or self-care (01) ==
LOC: HO.MAMMO 08:27
PROVIDERS: PCP Nurse Practitioner Family; Visit Provider Internal Medicine Endocrinology, Diabetes & Metabolism
DX: Z13.820 Encounter for screening for osteoporosis (principal); E21.3 Hyperparathyroidism, unspecified; Z78.0 Asymptomatic menopausal state
CPT/HCPCS: 77081

== ENCOUNTER 2023-09-22 08:52 | Outpatient (REF) | payer OTHER, SELFPAY | END 2023-09-22 08:53 | disposition home or self-care (01) | LOC: HO.LAB 08:52 | PROVIDERS: PCP Nurse Practitioner Family; Visit Provider Nurse Practitioner Family | DX: I10 Essential (primary) hypertension (principal); E03.9 Hypothyroidism, unspecified; E21.3 Hyperparathyroidism, unspecified | CPT/HCPCS: 36415; 80053; 80061; 83970; 84443 ==

== ENCOUNTER 2023-09-27 10:01 | Outpatient (REF) | payer OTHER, SELFPAY ==
[2023-09-27 11:28] LABS: Alanine Aminotransferase 37 U/L (0-31); Albumin Level 4.4 g/dL (3.5-5.0); Alkaline Phosphatase 85 U/L (39-117); Anion Gap 15 (12-20); Aspartate Amino Transferase 34 U/L (5-31); Bilirubin Total 0.7 mg/dL (0.0-1.0); Blood Urea Nitrogen 14 mg/dL (9-16); Calcium 9.4 mg/dL (8.4-10.2); Carbon Dioxide 26 mmol/L (22-29); Chloride 102 mmol/L (96-108); Estimated Glomerular Filt Rate > 60; Glucose Random 93 mg/dL (60-115); Phosphorus 3.1 mg/dL (2.7-4.5); Potassium 4.3 mmol/L (3.3-5.1); Sodium 139 mmol/L (135-145); Total Protein 7.4 g/dL (6.5-8.0)
[2023-09-27 11:44] LABS: Vitamin D 25-OH Total 49.1 ng/mL (>30)
== END 2023-09-27 10:02 | disposition home or self-care (01) ==
LOC: HO.LAB 10:01
PROVIDERS: Visit Provider Internal Medicine Endocrinology, Diabetes & Metabolism
DX: E21.3 Hyperparathyroidism, unspecified (principal); E55.9 Vitamin D deficiency, unspecified
CPT/HCPCS: 36415; 80053; 82306; 84100

== ENCOUNTER 2023-09-28 15:17 | Outpatient (AMB) | payer OTHER, SELFPAY ==
--- NOTE | 2023-09-28 15:19 | A.OFFVIS_ITS ---
Intake Vital Signs 09/28/23 15:20 Height 5 ft 4 in Weight 179 lb 0.246 oz BMI 30.7 BP 138/78 Blood Pressure Location Rt brachial Position Sitting Pulse 82 Pulse Source Pulse Oximeter Intake Visit Reasons: F/U Hyperparathyroidism/LVM Intake Note: Patient presents today for Hyperparathyroidism. Last seen by Dr. Puckett on 12/15/2022. Patient taking fish oil 3x daily, unsure of dose. 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 Last seen by Dr. Puckett on 12/15/2022. HPI Comments History of Present Illness Details 57 YO F with no significant PMHx who is seen in F/U for hyperparathyroidism, hypothyroidism and Vitamin D deficiency. . The patient last saw Dr. Puckett on 12/15/2022 1) Hyperparathyroidism: She had one instance where her Calcium was elevated to 10.3 11/07/18. Calcium was repeated and has remained within the normal range on mutliple checks since. PTH was checked, as her sister was diagnosed with primary hyperparathyroidism and underwent a parathyroidectomy. PTH was elevated 05/01/19 to 124. No Vitamin D was checked. She was subsequently referred to Endocrinology. Labs were repeated 06/10/19 with Calcium of 9.4, Albumin of 4.2, PTH of 99 and Vitamin D of 31. 24 hour urine calcium was assessed, but this was a poor collection with a Creatinine of 0.5. This was repeated and was an adequate collection, but was a very large volume of approximately 5 liters. She had labs repeated which revealed a very low Vitamin D in Sep 2019. She was started on Vitamin D 2000 IU daily and had labs repeated 03/05/2020. These revealed Vitamin D 49.7, PTH 62, Calcium 9.8, Albumin 4.7, iCal 5.3. TSH was 2.27. Labs were repeated 09/07/2020 with Calcium WNL, but PTH elevated to 140. Vitamin D is now WNL. 24 hour urine was repeated and again was a large volume with Calcium WNL. Currently not using Calcium supplement. Has minimal dairy in her diet. Complains of rare constipation, but otherwise denies body aches or headaches. Kidney stones: Denies. Had an US in January 2018 with no evidence of nephrolithiasis. Osteoporosis: Rony, has never had a bone density. 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 Menses was always regular. . Menopause was age 6 0. 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 She had an US that reported a thyroid nodule, but this was found to be a pseudonodule and not a true nodule. DXA: 07/29/2021 FINDINGS: AP SPINE L1-L4: Current: BMD 0.952 g/cm2, Z-score -1.3, T-score -1.9, osteopenia, 2.9% decrease from baseline (<5% change is not significant). Baseline: BMD 0.980 g/cm2. LEFT FEMUR, NECK: Current: BMD 0.836 g/cm2, Z-score -0.6, T-score -1.5, osteopenia. Baseline: BMD 0.907 g/cm2. LEFT FEMUR, TOTAL: Current: BMD 0.930 g/cm2, Z-score -0.1, T-score -0.6, normal, 3.5% decrease from baseline (<5% change is not significant). Baseline: BMD 0.964 g/cm2. LEFT FOREARM RADIUS 33%: BMD 0.680 g/cm2, Z-score -1.8, T-score -2.2, osteopenia, 8.5% decrease from baseline (<5% change is not significant). Baseline: BMD 0.743 g/cm2. Labs: Laboratory Tests 12/01/22 12/01/22 12/01/22 11:38 11:39 11:39 Sodium 138 Potassium 4.2 Creatinine 0.72 Estimated GFR > 60 N-Telopeptide X-li nked 27 25-OH Vitamin D To cristiano 49.0 TSH 1.94 Free T4 1.19 PTH Intact 87 H Calcium (PTH Intac t) 9.8 PFSH Medical History Personal history of nicotine dependence Chuck's disease Multinodular thyroid Hyperparathyroidism Vitamin D deficiency Osteopenia (~2018) Postmenopausal (~2015) Abnormal LFTs Transaminitis Surgical History History of colonoscopy History of lumpectomy Family History Father CVD (cardiovascular disease) Mother Breast cancer Sister Hyperparathyroidism Social History Household Members: None Alcohol intake: current Alcohol intake frequency: holidays/special occasions only Patient Tobacco Use Status: Former Tobacco user Quit Date: 2019 Years Smoked: onset 13yo, 1/2-1ppd x 42yrs, 25pyh - quit 2019 Current occupational status: employed Current occupation: [employer] Physical Exam Vital Signs: Last Vital Signs Pulse 82 09/28/23 15:20 BP 138/78 09/28/23 15:20 BMI result Body Mass Index 30.7 Assessment & Plan Assessment & Plan (1) Hyperparathyroidism: Code(s): E21.3 - Hyperparathyroidism, unspecified Plan: This 58-year-old white female with a history of primary hyperparathyroidism She does have progression of osteoporosis particularly in the distal forearm. Her vitamin-D levels are replete I do not think that the PTH elevation is reflective of secondary hyperparathyroidism . 24 hour urine for calcium was also within normal limits Plan is to recheck calcium,25- vitamin-D and PTH level at [facility]. If levels are consistent with primary hyperparathyroidism will refer to Dr. Orlando for possible parathyroidectomy Orders: Orders Calcium Today E21.3 - Hyperparathyroidism, unspecified Vitamin D 25-OH Total Today E21.3 - Hyperparathyroidism, unspecified Parathyroid Hormone Intact Today E21.3 - Hyperparathyroidism, unspecified Referrals General Surgery Referral E21.3 - Hyperparathyroidism, unspecified Coding Level of Care Code New Pt Level 4 (46885) Diagnoses Hyperparathyroidism E21.3
[2023-09-28 15:20] VITALS: BP 138/78; PULSE 82; BMI 30.7
== END 2023-09-28 16:11 | disposition home or self-care (01) ==
PROVIDERS: PCP Nurse Practitioner Family; Visit Provider Internal Medicine Endocrinology, Diabetes & Metabolism
DX: E21.3 Hyperparathyroidism, unspecified (principal)
CPT/HCPCS: 99204

== ENCOUNTER → 2023-09-28 15:17 | Outpatient (BNVA) | payer OTHER, SELFPAY | PROVIDERS: Visit Provider Internal Medicine Endocrinology, Diabetes & Metabolism ==

== ENCOUNTER 2023-11-29 15:15 | Outpatient (REF) | payer OTHER, SELFPAY ==
[2023-11-29 16:04] LABS: Calcium 9.6 mg/dL (8.4-10.2)
[2023-11-29 16:22] LABS: Parathyroid Hormone Intact 109.4 pg/mL (8.7-77.1)
[2023-11-29 16:25] LABS: Vitamin D 25-OH Total 46.5 ng/mL (>30)
== END 2023-11-29 15:16 | disposition home or self-care (01) ==
LOC: HO.LAB 15:15
PROVIDERS: PCP Nurse Practitioner Family; Visit Provider Internal Medicine Endocrinology, Diabetes & Metabolism
DX: E21.3 Hyperparathyroidism, unspecified (principal)
CPT/HCPCS: 36415; 82306; 82310; 83970

== ENCOUNTER 2024-04-15 08:59 | Outpatient (REF) | payer OTHER, SELFPAY ==
--- NOTE | ~2024-04-15 | MM_ITS ---
EXAMINATION: MM SCREENING DIGITAL BREAST TOMOSYNTHESIS, BILATERAL CLINICAL INFORMATION: Screening. Asymptomatic. COMPARISON: Mammography: This study is compared with prior exams dating back to 2017 TECHNIQUE: Digital breast tomosynthesis is performed in both the craniocaudal and mediolateral oblique views along with computer-aided detection (CAD). Synthesized 2D images are generated from the tomosynthesis. FINDINGS: The breasts are heterogeneously dense, which may obscure small masses (ACR BI-RADS breast composition Category c). There are no significant masses, abnormal calcifications, or other abnormalities. Parenchymal pattern is stable bilaterally. MM/MM tomosynthesis screening BI IMPRESSION: No mammographic evidence of malignancy. ASSESSMENT: BI-RADS BI-RADS 1 - Negative RECOMMENDATION: Routine annual mammography screening. 1 year F/U This examination should not preclude the clinical evaluation of a suspicious palpable abnormality. This patient's information was entered into a reminder system with a target due date for their next mammogram.
== END 2024-04-15 09:00 | disposition home or self-care (01) ==
LOC: HO.MAMMO 08:59
PROVIDERS: PCP Internal Medicine Nephrology; Visit Provider Internal Medicine Nephrology
DX: Z12.31 Encounter for screening mammogram for malignant neoplasm of breast (principal)
CPT/HCPCS: 77063; 77067

== ENCOUNTER 2024-05-10 10:17 | Outpatient (REF) | payer OTHER, SELFPAY ==
[2024-05-10 12:18] LABS: Blood Urea Nitrogen 13 mg/dL (9-16); Calcium 9.8 mg/dL (8.4-10.2); Estimated Glomerular Filt Rate > 60; Phosphorus 3.6 mg/dL (2.7-4.5)
[2024-05-10 12:22] LABS: Vitamin D 25-OH Total 57.3 ng/mL (>30)
[2024-05-14 17:39] LABS: Calcium, Ionized 5.2 mg/dL (4.7-5.5)
== END 2024-05-10 10:18 | disposition home or self-care (01) ==
LOC: HO.LAB 10:17
PROVIDERS: PCP Internal Medicine Nephrology; Visit Provider Surgery
DX: E21.0 Primary hyperparathyroidism (principal)
CPT/HCPCS: 36415; 82306; 82310; 82330; 82565; 83970; 84100; 84520

== ENCOUNTER 2024-05-15 09:22 | Outpatient (REF) | payer OTHER, SELFPAY ==
[2024-05-15 10:48] LABS: Creatinine, mg/dL 40.77
[2024-05-15 11:06] LABS: Creatinine, 24Hr Urine 1.2 G/Day (1.0-2.0); Total Volume 24 Hour Urine 3000 mL
[2024-05-16 17:33] LABS: Calcium, 24 Hr Urine 81 mg/24 h; Calcium/Creatinine Ratio 64 mg/g creat (30-275); Creatinine 24Hr Urine 1.26 g/24 h (0.50-2.15)
== END 2024-05-15 09:23 | disposition home or self-care (01) ==
LOC: HO.LNP 09:22
PROVIDERS: Visit Provider Surgery
DX: E21.3 Hyperparathyroidism, unspecified (principal)
CPT/HCPCS: 82340; 82570

== ENCOUNTER 2024-06-06 08:56 | Outpatient (REF) | payer OTHER, SELFPAY ==
--- NOTE | ~2024-06-06 | CT_ITS ---
EXAMINATION: CT LOW-DOSE SCREENING CHEST WITHOUT CONTRAST CLINICAL INFORMATION: Personal history of nicotine dependence. Former smoker. The patient has a 41 pack-year history of smoking, having quit 4 years ago. COMPARISON: CT chest June 02, 2023 and x-ray chest January 28, 2019. TECHNIQUE: Multidetector volumetric CT imaging of the chest is performed on a Siemens SOMATOM Definition scanner without contrast using low dose technique. Additional 2D coronal and sagittal reformatted images and axial 3D maximum intensity projection (MIP) images are generated on the CT workstation. This CT examination was performed using dose optimization techniques as appropriate, variously including the following: *Automated exposure control *Adjustment of mA and/or kV according to patient size (this includes techniques or standardized protocols for targeted exams where dose is matched to indication/reason for exam; i.e. extremities or head) *Use of iterative reconstruction technique TOTAL EXAM DLP: 50 mGy-cm. CTDIvol: 1.40 mGy. FINDINGS: PULMONARY NODULES: 4 mm triangular left lower lobe perifissural nodule, consistent with a lymph node, unchanged from prior (5:350 compare prior 5:346). 2 mm left apical nodule unchanged (5:81 compare prior 5:88). Punctate granuloma again seen in the right upper lobe anteriorly (5:222). There is no new, increasing-sized or suspicious nodules seen. LUNGS: Lungs bilaterally symmetrically expanded. There is mild emphysema and bronchial thickening without bronchiectasis. No effusion or pneumothorax. Central airways patent. MEDIASTINUM: No mediastinal, hilar or axillary adenopathy or free fluid collection. CORONARY ARTERY CALCIFICATION: None visualized on this study. THYROID GLAND: Unremarkable to the extent seen. CARDIOVASCULAR STRUCTURES: Aortic and heart size normal. No pericardial effusion. CHEST WALL/AXILLA: Unremarkable. UPPER ABDOMEN: Included portions of the solid organs in the upper abdomen unremarkable on noncontrast imaging. OSSEOUS STRUCTURES: No suspicious focal findings. CT/CT lung screening IMPRESSION: No findings seen suspicious for malignancy. ASSESSMENT: 1. Lung-RADS Category 2: Benign appearance or behavior of nodules. N/A 2. Lung-RADS Category S: Negative. There are no clinically significant or potentially clinically significant findings not related to the lungs requiring urgent additional evaluation. RECOMMENDATION: Continued routine annual low-dose CT lung screening in 1 year is recommended. An order for CT CHEST LOW DOSE CANCER SCREENING ([id number]) can be placed. Electronically signed by: Samuel Villalobos MD 08/01/2024 04:08 PM HAMZAH WARE
== END 2024-06-06 08:57 | disposition home or self-care (01) ==
LOC: HO.CT 08:56
PROVIDERS: PCP Internal Medicine Nephrology; Visit Provider Physician Assistant Medical
DX: Z12.2 Encounter for screening for malignant neoplasm of respiratory organs (principal); Z87.891 Personal history of nicotine dependence
CPT/HCPCS: 71271

== ENCOUNTER 2024-09-04 13:06 | Outpatient (REF) | payer OTHER, SELFPAY | END 2024-09-04 13:07 | disposition home or self-care (01) | LOC: HO.MRI 13:06 | PROVIDERS: PCP Internal Medicine Nephrology; Visit Provider Surgery | DX: M48.061 Spinal stenosis, lumbar region without neurogenic claudication (principal) | CPT/HCPCS: 72141 ==

== ENCOUNTER 2024-10-25 11:12 | Outpatient (REF) | payer OTHER, SELFPAY ==
--- OUTSIDE RECORDS SUMMARY | 2024-10-25 12:13 | XMS_ITS | Continuity of Care Document ---
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 Start Date: 12/08/23 Status: Ordered Repeat number: 1 Calcium 500+D 2 times a day, 0 Refills, Maintenance, 12/08/23 8:35:00 AM EDT, Partial fill upon patient request ifthe prescription is for a schedule II opioid drug. Start Date: 12/08/23 Status: Ordered Repeat number: 1 clonazePAM 0.5 mg oral tablet 1 tablet = 0.5 mg, By Mouth, 3 times a day, 0 Refills, Maintenance, 12/08/23 8:34:00 AM EDT, Partialfill upon patient request if the prescription is for a schedule II opioid drug. Start Date: 12/08/23 Status: Ordered Repeat number: 1 Fish Oil By Mouth, 0 Refills, Maintenance, 12/08/23 8:34:00 AM EDT, Partial fill upon patient request if the prescription is for a schedule II opioid drug. Start Date: 12/08/23 Status: Ordered Repeat number: 1 levothyroxine 100 mcg (0.1 mg) oral capsule 1 capsule = 100 mcg, By Mouth, Daily, 0 Refills, Maintenance, 12/08/23 8:34:00 AM EDT, Partial fill upon patient request if the prescription is for a schedule II opioid drug. Start Date: 12/08/23 Status: Ordered Repeat number: 1 Vitamin D 47986 iu oral capsule 50,000 International_Units, By Mouth, Daily, Refills 0, Maintenance, 12/08/23 8:35:00 AM EDT, Partial fill upon patient request if the prescription is for a schedule II opioid drug. Start Date: 12/08/23 Status: Ordered Repeat number: 1 Problem List Condition Confirmation Course Effective Dates Status Health St atus Informant Obese class I Confirmed Active Social History Social History Type Response Smoking Status Former smoker, quit more than 30 days ago; Other: Quite in 2019; entered on: 12/08/23 Sex Sex Representation Female (finding) Patient Care team information Care Team Personnel Name: Meka Cabral NP Position: [facility] Outreach Member Role: PCP Address: [address] [place] [address] Telecom: Care Team Related Persons Name: JAE BOWMAN Insurance Providers Guarantor name: ALEJANDRA BOWMAN Health Plan Information #: 1 Payer: [employer] PPO Member Number: NA Policy Number: NA Group Number: NA
--- OUTSIDE RECORDS SUMMARY | 2024-10-25 12:13 | XMS_ITS | Continuity of Care Document ---
Author Organization [facility] ter Address [address] [place] [address]- Care Team Providers Care Mission Systems Engineer Name Role Phone Vern Coronel DO Primary Care Physician [id number] Date(s): 10/16/24 - 10/16/[address] [address]- Discharge Disposition: A-D/C Home Attending Physician: Josue Orlando MD Admitting Physician: Josue Orlando MD Referring Physician: Josue Orlando MD Encounter Type: Disch Daystay Allergies, Adverse Reactions, Alerts No Known Medication [...] Status: Ordered Repeat number: 1 Vitamin D 55564 iu oral capsule 50,000 International_Units, By Mouth, Daily, Refills 0, Maintenance, 12/08/23 8:35:00 AM EDT, Partial fill upon patient request if the prescription is for a schedule II opioid drug. Start Date: 12/08/23 Status: Ordered Repeat number: 1 Problem List Condition Confirmation Course Effective Dates Status Health St atus Informant Obese class I Confirmed Active Procedures Procedure Date Related Diagnosis Body Site Status Parathyroidectomy or explora tion of parathyroid(s); 10/16/24 Completed Vital Signs Most recent to oldest [Reference Range]: 1 2 3 4 Weight 79.4 kg (10/16/24 9:41 AM) Oxygen Saturation [94-100 %] 99 % (10/16/24 2:45 PM) 95 % (10/16/24 2:00 PM) 95 % (10/16/24 1:15 PM) 95 % (10/16/24 1:15 PM) Pulse Rate [55-90 bpm] 80 bpm (10/16/24 9:41 AM) Blood Pressure [90-138/55-84 mm Hg] 150/77mm Hg *H* (10/16/24 2:01 PM) Systolic Blood Pressure [90-138 mm Hg] 142 mm Hg *H* (10/16/24 1:15 PM) 142 mm Hg *H* (10/16/24 1:15 PM) Diastolic Blood Pressure [55-84 mm Hg] 72 mm Hg (10/16/24 1:15 PM) 72 mm Hg (10/16/24 1:15 PM) Respiratory Rate [16-30 br/min] 20 br/min (10/16/24 2:00 PM) 18 br/min (10/16/24 1:15 PM) 18 br/min (10/16/24 1:15 PM) Temperature [96.8-100.4 DegF] 97.8 DegF (10/16/24 1:15 PM) 97.2 DegF (10/16/24 12:15 PM) 97.7 DegF (10/16/24 9:41 AM) Liters per Minute 6 L/min (10/16/24 12:15 PM) Mode of Delivery (Oxygen) Room air (10/16/24 12:30 PM) Simple face mask (10/16/24 12:15 PM) Room air (10/16/24 9:41 AM) Blood pressure sites Arm, left (10/16/24 1:15 PM) Arm, left (10/16/24 1:00 PM) Arm, left (10/16/24 12:45 PM) Temperature Route Temporal (10/16/24 1:15 PM) Temporal (10/16/24 12:15 PM) Temporal (10/16/24 9:41 AM) Dry Weight 79.4 kg (10/16/24 9:41 AM) Dry Weight Obtained Via Standing scale (10/16/24 9:41 AM) Social History Social History Type Response Smoking Status Former smoker, quit more than 30 days ago; Other: Quite in 2019; entered on: 12/08/23 Sex Sex Representation Female (finding) History and physical note * Event Display: History and Physical Hospital Authored Date: [id number] Note * Mohamud Novak RN: PERFORM Event Display: Discharge/Transfer Note Hospital Authored Date: [id number] Nursing Discharge Note Entered On: 10/16/2024 15:08 EST Performed On: 10/16/2024 15:07 EST by Mohamud Novak RN Nursing Discharge Note 2 Discharge Time : 10/16/2024 15:05 EST Discharge Level of Care at Discharge : Home/Care Home/Foster Care Patient Left Unit Via : Wheelchair Patient Accompanied Off Unit with : Significant other DC Instructions Provided & Signed by Pt : Yes Patient Understands D/C Instructions : Yes Patient Instructions Discharge Signed : Yes Did Pt have Specialty Bed or Wound Vac : No Mohamud Novak RN - 10/16/2024 15:07 EST * Mohamud Novak RN: PERFORM Event Display: Patient Education/Instruction Authored Date: [id number] Surgery Adult Discharge Instructions [address] [address] Name: ALEJANDRA BOWMAN : 1965?? Visit: 10/16/2024 09:03?? Current Date: 10/16/2024 14:19 ?? Account: [id number]?? Surgery Discharge Instructions We would like to thank you for allowing us to assist you with your healthcare needs. The following includes patient education materials and information regarding your injury/illness. Our entire staffstrives to provide an excellent experience for our patients and their families. PLEASE ENSURE YOU FOLLOW-UP PER THE INSTRUCTIONS BELOW! ?? YOUR OPINION IS IMPORTANT TO US! Please complete the survey you may receive by mail or email. Your feedback will be used to make improvements to the healthcare experiences of our patients and their families. Surveys are administered by [employer]. ?? If further treatment with your primary care physician or another doctor is recommended, it is important for you to keep the appointment. Call your primary care physician or return to the Emergency Department immediately if your condition worsens, fails to improve, or new symptoms develop. If you need to find a doctor, you can call [email or web address]BA eGifter Link for a referral at [phone] or toll free at [phone] Home [phone] ([phone]) or log in to [email or web address].. ?? [facility], in keeping with [facility] guidance, no longer requires face masks for staff, patientsor visitors in most situations. Similiar to time spent indoors at other locations, there is the chance that you were exposed to repiratory viruses during your time with us (such as flu or COVID-19). If you develop symptoms concerning for a viral respiratory infection, please seek testing (and treatment if indicated) from your medical provider or home test kit. ?? You can view and manage your care through the patient portal or by using a health care samina of your choosing. [employer] is a website that allows you to securely view your medical information including your hospital discharge summary, office visit summaries, medications and follow-up visits. You can also request appointments, renew medications, and request access to your medical information using a health care samina of your choosing, or just ask a question. You are entitled to know the individuals who participated in your treatment. This information is available within your medical record and will be provided upon your request. You can enroll at [email or web address] or register d uring your next office visit. You have been discharged from [facility], Patient Care Unit: [facility]??. If you have any questions regarding these instructions after you leave, please call us and we will be happy to assist you. [facility] Your Care Team Attending Physician Darion COLLADO, Josue?? Reason for Admission PRIMARY HYPERPARTHYROIDISM DS CS Primary Care Provider Vern Coronel DO? Advance Directive Health Care Proxy on File No What to do next Instructions From Your Doctor ?? Postoperative Instructions for Parathyroidectomy ?? You have undergone endocrine surgery with Dr. Orlando. The instructions here should help answer common questions and guide you through the first steps of healing and recovery. ?? Activity: Get plenty of rest after surgery, however we would still like you to be active and walk several times a day.?? Increase your walking distance as you feel able.?? Continue with light activities for 1 to 2 weeks then ease yourself back into regular activities.?? No strenuous exercise until 4 weeks after surgery.? Driving: No driving until you are off pain medications and feel comfortable turning your head and neck [id number]. ?? Medication Instructions: ??-Critical??2 tablets??three times a day ?? Please have labs drawn in 1 week to check your calcium levels ?? -Tylenol: 1000mg every 6 hours for the first 2 days after surgery. After the first few days you cancontinue to take Tylenol as needed for pain.? -Opioid pain medication: Oxycodone, this is typically only needed for a few days after surgery. Take Tylenol prior to taking the opioid pain medication. Do not take it if not needed.? -Stool softener: Opioid pain medications can cause constipation so drink plenty of fluids. Take Colace or MiraLAX twice a day when on opioids to prevent constipation. If you don't have a bowel movement in 2-3 days take Milk of Magnesia 30mg twice a day until you have a bowel movement. ?? Incision care: For the first two days after surgery keep your neck elevated and apply ice to minimize swelling. Swelling is normal after surgery, and it will take several weeks for the neck to completely flatten out again. ?? -Showering: it is okay to shower and get your incision wet 1 day after surgery. Water can run over the incision and just pat the incision dry afterwards. No saunas, hot tubs, or soaking the incision until one month after surgery.? -Steri-strips: may be removed from your incision by gently pealing them off 7 days after surgery. ?? What to watch for: If you had a parathyroidectomy or your entire thyroid removed, you might have symptoms of a low calcium level. These symptoms include numbness or tingling around the mouth or fingertips.?? For these symptoms increase Citracal to 2 tablets 4 times a day.?? If your symptoms do not subside and you still have muscle cramping or numbness call the office at [phone].??After-hours call [phone] ?? If you develop fever, chills, increased pain, bleeding, increased swelling, increased redness or pus around the surgical site please call the office at [phone]. After hours or on weekends call [phone] and have the on-call physician paged. ?? You should have a follow-up appointment scheduled approximately 2 weeks after your surgery date. Please call the office at [phone] with any questions or concerns. ?? Orders?? Scheduled Follow-Up Appointments Monday 4:40 PM EST ?? With: Josue Orlando MD Where: [facility] [address] [place] [address] Drive [address] [place] [address]- Status: Pending You Need to Schedule the Following Appointments Follow Up with??Josue Orlando MD When:??Within 1-2 day: call to discuss follow up visit Discharge Medications ALEJANDRA BOWMAN :1965 Visit Date:10/16/2024 Medications: Please continue your medications until treatment is completed or stopped by your provider. You may resume your daily prescription medications. Discuss any questions related to medications with your provider. What How Much When Instructions Next Dose Unchanged Amlodipine (amLODIPine 10 mg oral tablet) 1 tab(s) Oral Daily Unchanged Calcium And Vitamin D Combination (Calcium 500+D) Twice a day Unchanged Clonazepam (clonazePAM 0.5 mg oral tablet) 1 tab(s) Oral 3 times a day Unchanged Ergocalciferol (Vitamin D 28766 iu oral capsule) 50,000 International Unit Oral Daily Unchanged Levothyroxine (levothyroxine 100 mcg (0.1 mg) oral capsule) 1 capsule Oral Daily Unchanged [place]-3 Polyunsaturated Fatty Acids (Fish Oil) Oral Education Materials Below is the list of Educational Leaflet Providered with your Discharge Instructions. [employer]ite Patient Education - Surgery Medical Daystay Surgical Overnight Discharge Instructions?? Valuables and Belongings I fully understand and agree that [facility] accepts no responsibility for all my personal property including clothing, toilet articles, radios, jewelry, dentures, hearing aids, rings, money, or any other property that is in my possession or is brought to me after admission. I understand certain valuables may be placed in a hospital safe for a short period of time. I understand that the hospital is not liable for loss or damage due to accident, fire, or other natural occurrence while said property is in the safe. I accept full responsibility for any personal property that I keep with me, and will not hold the hospital responsible in case of loss or disappearance. I acknowledge that i have been encouraged to send valuables and belongings home. ?? Review of Valuable and Belonging List: With patient Date for Pt to Sign Valuables/Belongings: 10/16/24 09:41:00 ?? Valuables & Belongings ?? Clothes Electronic devices Jewelry Monetary Items Personal devices Miscellaneous Medications (Valuables) Valuables at Bedside Jacket, Pants, Shirt, Shoes, Undergarments Cell phone ? Hearing aid, left, Hearing aid, right ? Valuables Sent Home ? Valuables Sent to Security ? Valuables Sent to Locker ? Common Emergency Awareness Tips IS IT A STROKE? Act FAST and Check for these signs: FACE Does the face look uneven? ARM Does one arm drift down? SPEECH Does their speech sound strange? TIME Call 9-1-1 at any sign of stroke ?? Heart Attack Signs Chest discomfort: Most heart attacks involve discomfort in the center of the chest and lasts more than a few minutes, or goes away and comes back. It can feel like uncomfortable pressure, squeezing, fullness or pain. Discomfort in upper body: Symptoms can include pain or discomfort in one or both arms, back, neck, jaw or stomach. Shortness of breath: With or without discomfort. Other signs: Breaking out in a cold sweat, nausea, or lightheaded. Remember, MINUTES DO MATTER. If you experience any of these heart attack warning signs, call to get immediate medical attention! ?? Smoking can increase your chances of developing chronic health problems and can cause harmful effects to other family members in your house. If you smoke, you are strongly encouraged to quit. Please call [email or web address] eGifter Link at [phone] or [phone] ([phone]) or log in to [email or web address] for referrals to smoking cessation programs. ?? The National Suicide Prevention Hotline is available 10/04 if you or someone you know needs to find a reason to keep living. By calling 5-183-660-yourdelivery (2341) you'll be connected to a skilled, trained counselor at a crisis center in your area. SURGERY DISCHARGE INSTRUCTIONS SIGNATURE BEREKET ALEJANDRA BOWMAN Location:[facility] Registration Date and Time:10/16/2024 09:03 EST Primary Care Physician: Vern Coronel DO, Attending Physician: Josue Orlando MD, I ALEJANDRA BOWMAN, have received the above patient education materials/instructions and have verbalized understanding. If ambulance or transport services are being used I further acknowledge being given a choice of service. ?? If you need to contact me, please call me at this number: . Patient/Facing Baster Jumpbasting Name: Patient/Facing Baster Jumpbasting Signature: Relationship to Patient: Witness Name/Signature: Date: * Scarlet Mohamud BURGESS: PERFORM Event Display: Patient Education Leaflets Authored Date: [id number] Surgery Medical Daystay Surgical Overnight Discharge Instructions ?? 295 Medical Daystay/Surgical Overnight Discharge Instructions ? Since your coordination and judgment may be altered by medication and/or anesthesia, a responsible adult must drive you home from the hospital. ? If you have received medication for pain or sedation while under our care, you should not drive, operate machinery, drink alcohol, or sign any legal documents for 24 hours.?? You should have someone with you at home tonight. ? Remain at home the day of discharge.?? You may be up and about unless otherwise instructed by your physician. ? You may resume your daily prescription medication schedule.?? Any depressant medication should be avoided for 24 hours unless otherwise instructed by your surgeon or anesthesiologist. ? Call your physician for a follow-up appointment.? If you experience unusual or severe pain not relied by your pain medication, excessive bleedingor drainage, persistent nausea and vomiting, excessive swelling or redness, foul odor from incisionsite or fever over 100.6F, you need to call your physician. ? A follow-up phone call by a nurse will be made the day after your procedure.?? If you have stayed with us over night, you will not be receiving a follow-up phone call. ? Nausea and vomiting are a common side effect of prescription pain medication.?? We recommend that pills are not taken on an empty stomach.?? While taking any prescription pain medication you should not drive or drink alcohol. ? Patient Care team information Care Team Personnel Name: Vern Coronel DO Position: [facility] Renal MD Member Role: PCP Address: [address] [place] [address] Telecom: Care Team Related Persons Name: JAE BOWMAN Insurance Providers Guarantor name: ALEJANDRA BOWMAN Health Plan Information #: 1 Payer: [employer]UE [employer] PPO Member Number: [id number] Policy Number: NA Group Number: [id number] Health Plan Information #: 2 Payer: BLUE B[employer]EFIT BBA PPO Member Number: [id number] Policy Number: NA Group Number: [id number]
--- OUTSIDE RECORDS SUMMARY | 2024-10-25 12:14 | XMS_ITS | Continuity of Care Document ---
Author Organization [facility] Address [address] [place] [address] [address] [place] [address]- Care Team Providers Care Machine Learning Intern Name Role Phone Vern Coronel DO Primary Care Physician Encounter [facility] Date(s): 09/19/24 - 10/19/[address] [place] [address]- Encounter Type: Triage Allergies, Adverse Reactions, Alerts [...] mcg, By Mouth, Daily, 0 Refills, Maintenance, 3/22/24 8:34:00 AM EDT, Partial fill upon patient request if the prescription is for a schedule II opioid drug. Start Date: 12/08/23 Status: Ordered Repeat number: 1 Vitamin D 64130 iu oral capsule 50,000 International_Units, By Mouth, [...] Team Personnel Name: Vern Coronel DO Position: [facility] Renal Member Role: PCP Address: [address] [place] [address] Telecom: Care Team Related Persons Name: JAE BOWMAN Insurance Providers Guarantor name: ALEJANDRA GRACIE Health Plan Information #: 1 Payer: BLUE BENEFIT BBA PPO Member Number: NA Policy Number: NA Group Number: [id number]
--- OUTSIDE RECORDS SUMMARY | 2024-10-25 12:14 | XMS_ITS | Continuity of Care Document ---
Author Organization [facility] As [facility] Address [address] [place] [address] Dr [address] [place] [address]- Care Team Providers Care First Dyer Name Role Phone Meka Cabral NP Primary Care Physician Encounter [facility] Date(s): 09/06/24 - 10/06/[address] [place] [address]- Encounter Type: Triage Allergies, Adverse Reactions, Alerts [...] Status: Ordered Repeat number: 1 Vitamin D 66390 iu oral capsule 50,000 International_Units, By Mouth, [...] Team Personnel Name: Meka Cabral NP Position: [facility] Outreach Member Role: PCP Address: [address] [place] [address] Telecom: Care Team Related Persons Name: JAE BOWMAN Insurance Providers Guarantor name: ALEJANDRA BOWMAN Health Plan Information #: 1 Payer: BLUE BENEFIT BBA PPO Member Number: NA Policy Number: NA Group Number: NA
[2024-10-25 12:40] LABS: Albumin Level 4.2 g/dL (3.5-5.0); Calcium 9.4 mg/dL (8.4-10.2)
== END 2024-10-25 11:13 | disposition home or self-care (01) ==
LOC: HO.LAB 11:12
PROVIDERS: PCP Internal Medicine Nephrology; Visit Provider Surgery
DX: E21.0 Primary hyperparathyroidism (principal)
CPT/HCPCS: 36415; 82040; 82310; 83970

== ENCOUNTER 2024-10-30 12:56 | Outpatient (AMB) | payer OTHER, SELFPAY ==
[2024-10-30 13:03] VITALS: BMI 29.2
--- NOTE | 2024-10-30 13:03 | HO.SPINEOV ---
Vital Signs 10/30/24 13:03 Height 5 ft 4 in Weight 170 lb BMI 29.2 Intake Visit Reasons: neck pain Intake Note: Ms. Roe is here today c/o numbness and tingling of the hands. Research Coordinator Required: No Allergies No Known Allergies [No Known Allergies*] Allergy (Verified 10/30/24 13:03) Physical Exam Vital Signs: BMI result Body Mass Index 29.2 Assessment & Plan Assessment & Plan (1) Carpal tunnel syndrome: Code(s): G56.00 - Carpal tunnel syndrome, unspecified upper limb Category: Medical Qualifiers: Laterality: bilateral Qualified Code(s): G56.03 - Carpal tunnel syndrome, bilateral upper limbs (2) DDD (degenerative disc disease), cervical: Code(s): M50.30 - Other cervical disc degeneration, unspecified cervical region Category: Medical Plan Dear colleague Thank you for referring Elvie Roe to the office today with a chief complaint of bilateral intermittent hand numbness. HPI: This 59-year-old female underwent a CT scan for non-related spine issues that showed cervical degenerative changes that prompted ordering of an MRI of the cervical spine. She was referred to discuss the MRI findings. The patient has bilateral hand numbness during sleep, driving of her car or holding an iPad. Shaking her hands improved the symptoms. She has no symptoms of cervical myelopathy. Specifically, she denies dexterity loss, balance problems, incontinence or muscle weakness. 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 Employed Physical Exam: Pleasant female. Cranial nerves are intact. No dexterity loss. No pathological reflexes. Motor and sensory exam are intact. Wrist flexion produces bilateral hand numbness. Tinel is negative. Radiological Studies: MRI done at [facility] on 09/04/2024 shows cervical degenerative disc disease C4-5, C5-6 and C6-7. Addition there is central disc osteophyte at C5-C6 causing indentation of the spinal cord. There still surrounding CSF. No myelomalacia Impression/Plan: This patient had an incidental finding of cervical degenerative disc disease without cervical myelopathic symptoms. Hypothyroidism is a risk factor for the development of carpal tunnel syndrome. Her symptoms are compatible with carpal tunnel syndrome. I advised her to continue her current life activities. I will order an EMG to confirm the diagnosis of carpal tunnel syndrome. Thank you for allowing me to participate in your patients care. total time spent was 50 minutes in counseling ,coordination of plan, personal review of imaging, surgical decision making and subsequent plan Hari Parish MD, PhD Spine Fellowship Trained Neurosurgeon Director, [facility] Orders: Orders NE electromyogram (EMG) Today G56.00 - Carpal tunnel syndrome, unspecified upper limb Coding Level of Care Code New Pt Level 4 (85556) Diagnoses Bilateral carpal tunnel syndrome G56.03 Laterality: bilateral DDD (degenerative disc disease), cervical M50.30
== END 2024-10-30 13:39 | disposition home or self-care (01) ==
PROVIDERS: PCP Internal Medicine Nephrology; Visit Provider Neurological Surgery
DX: G56.03 Carpal tunnel syndrome, bilateral upper limbs (principal); M50.30 Other cervical disc degeneration, unspecified cervical region
CPT/HCPCS: 99204

== ENCOUNTER → 2024-10-30 12:56 | Outpatient (BNVA) | payer OTHER, SELFPAY | PROVIDERS: PCP Internal Medicine Nephrology; Visit Provider Neurological Surgery ==

== ENCOUNTER 2024-11-08 11:18 | Outpatient (REF) | payer OTHER, SELFPAY ==
--- OUTSIDE RECORDS SUMMARY | 2024-11-08 12:26 | XMS_ITS | Continuity of Care Document ---
Author Organization [facility] Address [address] [place] [address] Dr [address] [place] [address]- Care Team Providers Care Lathing Supervisor Name Role Phone Vern Coronel DO Primary Care Physician Encounter [facility] Date(s): 09/30/24 - 10/30/[address] [place] [address]- Encounter Type: Triage Allergies, Adverse Reactions, Alerts [...] Status: Ordered Repeat number: 1 Vitamin D 94877 iu oral capsule 50,000 International_Units, By Mouth, Daily, Refills 0, Maintenance, 12/08/23 8:35:00 AM EDT, Partial fill upon patient request if the prescription is for a schedule II opioid drug. Start Date: 12/08/23 Status: Ordered Repeat number: 1 Social History Social History Type Response Smoking Status Former smoker, quit more than 30 days ago; Other: Quite in 2019; entered on: 12/08/23 Sex Sex Representation Female (finding) Patient Care team information Care Team Personnel Name: Vern Coronel DO Position: [facility] Renal MD Member Role: PCP Address: [address] [place] [address] Telecom: Care Team Related Persons Name: JAE BOWMAN Insurance Providers Guarantor name: ALEJANDRA BOWMAN Health Plan Information #: 1 Payer: BLUE BENEFIT BBA PPO Member Number: NA Policy Number: NA Group Number: NA
--- OUTSIDE RECORDS SUMMARY | 2024-11-08 12:26 | XMS_ITS | Continuity of Care Document ---
Author Organization [facility] Address [address] [place] [address] [address], [address] [place] [address]- Care Team Providers Care Interactive Producer Name Role Phone Vern Coronel DO Primary Care Physician [phone] Encounter [place] Date(s): 10/29/24 - 11/05/[address] [place], [place] [address] Attending Physician: Andrew Welch MD Referring Physician: Vern Coronel DO Encounter Type: Office Visit Allergies, Adverse Reactions, Alerts No Known Medication [...] Status: Ordered Repeat number: 1 Vitamin D 99803 iu oral capsule 50,000 International_Units, By Mouth, Daily, Refills 0, Maintenance, 12/08/23 8:35:00 AM EDT, Partial fill upon patient request if the prescription is for a schedule II opioid drug. Start Date: 12/08/23 Status: Ordered Repeat number: 1 Vital Signs Most recent to oldest [Reference Range]: 1 Height 162 cm (10/29/24 2:57 PM) Weight 77 kg (10/29/24 2:57 PM) Body Mass Index [18.5-24.99 kg/m2] 29.34 kg/m2 *H* (10/29/24 2:57 PM) Social History Social History Type Response Smoking Status Former smoker, quit more than 30 days ago; Other: Quite in 2019; entered on: 12/08/23 Sex Sex Representation Female (finding) Patient Care team information Care Team Personnel Name: Vern Coronel DO Position: RICH Renal MD Member Role: PCP Address: [address] [place] [address] Telecom: Care Team Related Persons Name: JAE BOWMAN Insurance Providers Guarantor name: ALEJANDRA TORRESES Health Plan Information #: 1 Payer: [employer] PPO Member Number: [id number] Policy Number: NA Group Number: [id number] Health Plan Information #: 2 Payer: [employer] PPO Member Number: [id number] Policy Number: NA Group Number: [id number]
--- OUTSIDE RECORDS SUMMARY | 2024-11-08 12:26 | XMS_ITS | Continuity of Care Document ---
Author Organization [facility] Address [address] [place] [address] [address] [place] [address]- Care Team Providers Care Project Management Professional Name Role Phone Vern Coronel DO Primary Care Physician [phone] Encounter [facility] Date(s): 10/02/24 - 11/01/[address] [place] [address]- Encounter Type: Triage Allergies, Adverse Reactions, Alerts [...] Status: Ordered Repeat number: 1 Vitamin D 45889 iu oral capsule 50,000 International_Units, By Mouth, [...] Position: RICH Renal Member Role: PCP Address: [address] [place] [address] Telecom: Care Team Related Persons Name: JAE BOWMAN Insurance Providers Guarantor name: ALEJANDRA BOWMAN Health Plan Information #: 1 Payer: [employer] PPO Member Number: NA Policy Number: NA Group Number: NA
[2024-11-08 14:11] LABS: Albumin Level 4.3 g/dL (3.5-5.0)
== END 2024-11-08 11:19 | disposition home or self-care (01) ==
LOC: HO.LAB 11:18
PROVIDERS: PCP Internal Medicine Nephrology; Visit Provider Surgery
DX: Z90.89 Acquired absence of other organs (principal)
CPT/HCPCS: 36415; 82040; 82310

== ENCOUNTER 2024-11-13 08:54 | Outpatient (REF) | payer OTHER, SELFPAY ==
--- NOTE | 2024-11-13 08:57 | EMG_ITS ---
Chief complaint: Bilateral hand numbness, neck pain Reason for referral: Evaluate for Carpal Tunnel Syndrome versus radiculopathy Referred by: Dr. Parish Procedure done: Bilateral upper extremities NCS/EMG Precautions and/or limitations: None The limb temperature was monitored continuously and remained between 32-36 degrees C during the performance of the NCS. Nerve Conduction Studies Anti Sensory Summary Table ?Stim Site NR Onset (ms) Norm Onset (ms) Peak (ms) Norm Peak (ms) O-P Amp (?V) Norm O-P Amp Site1 Site2 Delta-0 (ms) Dist (cm) Orlando (m/s) Norm Orlando (m/s) Left Median Anti Sensory (2nd Digit) Wrist ? 2.2 3.2 <3.6 28.7 >10 Wrist 2nd Digit 2.2 14.0 64 Right Median Anti Sensory (2nd Digit) Wrist ? 2.3 3.1 <3.6 39.5 >10 Wrist 2nd Digit 2.3 14.0 61 Left Radial Anti Sensory (Thumb) Forearm ? 1.6 2.2 <3.1 15.1 Forearm Thumb 1.6 0.0 Right Radial Anti Sensory (Thumb) Forearm ? 1.6 2.4 <3.1 16.2 Forearm Thumb 1.6 0.0 Left Ulnar Anti Sensory (5th Digit) Wrist ? 2.6 3.3 <3.7 23.7 >15.0 Wrist 5th Digit 2.6 14.0 54 Right Ulnar Anti Sensory (5th Digit) Wrist ? 2.5 3.3 <3.7 29.5 >15.0 Wrist 5th Digit 2.5 14.0 56 Motor Summary Table ?Stim Site NR Onset (ms) Norm Onset (ms) O-P Amp (mV) Norm O-P Amp iAmp (mV) Amp (1st) (%) Site1 Site2 Delta-0 (ms) Dist (cm) Orlando (m/s) Norm Orlando (m/s) Left Median Motor (Abd Poll Brev) Wrist ? 3.0 <3.9 8.1 >4.5 9.8 100.0 Elbow Wrist 3.5 18.5 53 >45 Elbow ? 6.5 8.3 10.0 102.5 Right Median Motor (Abd Poll Brev) Wrist ? 2.9 <3.9 11.1 >4.5 13.1 100.0 Elbow Wrist 3.4 18.5 54 >45 Elbow ? 6.3 10.4 12.7 93.7 Left Ulnar Motor (Abd Dig Minimi) Wrist ? 2.6 <3.0 8.5 >5 10.3 100.0 B Elbow Wrist 3.0 17.5 58 >45 B Elbow ? 5.6 8.2 10.1 96.5 A Elbow B Elbow 1.4 10.0 71 >45 A Elbow ? 7.0 8.1 9.9 95.3 Right Ulnar Motor (Abd Dig Minimi) Wrist ? 2.7 <3.0 8.3 >5 10.8 100.0 B Elbow Wrist 3.0 17.5 58 >45 B Elbow ? 5.7 7.9 9.8 95.2 A Elbow B Elbow 1.1 10.0 91 >45 A Elbow ? 6.8 7.9 10.2 95.2 EMG ?Side Muscle Nerve Root Ins Act Fibs Psw Amp Dur Poly Recrt Int Pat Comment Right 1stDorInt Ulnar C8-T1 Nml Nml Nml Nml Nml 0 Nml Complete Right FlexCarRad Median C6-7 Nml Nml Nml Nml Nml 0 Nml Complete Right Biceps Musculocut C5-6 Nml Nml Nml Nml Nml 0 Nml Complete Right Triceps Radial C6-7-8 Nml Nml Nml Nml Nml 0 Nml Complete Right Deltoid Axillary C5-6 Nml Nml Nml Nml Nml 0 Nml Complete Left 1stDorInt Ulnar C8-T1 Nml Nml Nml Nml Nml 0 Nml Complete Left FlexCarRad Median C6-7 Nml Nml Nml Nml Nml 0 Nml Complete Left Biceps Musculocut C5-6 Nml Nml Nml Nml Nml 0 Nml Complete Left Triceps Radial C6-7-8 Nml Nml Nml Nml Nml 0 Nml Complete Left Deltoid Axillary C5-6 Nml Nml Nml Nml Nml 0 Nml Complete Paraspinal EMG ?Side Muscle Nerve Root Ins Act Fibs Psw Comment Right Cervical Upper Rami Nml Nml Nml Right Cervical Mid Rami Incr 1+ 1+ Right Cervical Lower Rami Incr 1+ 1+ Left Cervical Upper Rami Nml Nml Nml Left Cervical Mid Rami Incr 1+ 1+ Left Cervical Lower Rami Incr 1+ 1+ FINDINGS: All motor and sensory nerves tested showed normal latencies, amplitudes and conduction velocities. Concentric needle EMG was performed in selected muscles of the bilateral upper extremities and cervical paraspinals. Study revealed signs of electric abnormalities as shown in the table above. Increased insertional activity, PSWs and fibrillations seen on bilateral mid- lower cervical paraspinals. IMPRESSION: 1. This is an abnormal study. 2. There is electrodiagnostic evidence for bilateral mid-lower cervical radiculopathies. 3. There is no electrodiagnostic evidence for median neuropathy, ulnar neuropathy, or brachial plexopathy. Thank you for your kind referral. Viki Barillas MD, BELÉN Board Certified, [place] Board of Physical Medicine and Rehabilitation (ABPMR) Board Certified, [place] Board of Electrodiagnostic Medicine (ABEM) CODIN [phone] x 2 MTDD
== END 2024-11-13 08:55 | disposition home or self-care (01) ==
LOC: HO.NEURO 08:54
PROVIDERS: PCP Internal Medicine Nephrology; Visit Provider Neurological Surgery
DX: M54.2 Cervicalgia (principal); R20.0 Anesthesia of skin
CPT/HCPCS: 95886; 95911

== ENCOUNTER → 2024-11-13 08:57 | Outpatient (BNV) | payer OTHER, SELFPAY | PROVIDERS: PCP Internal Medicine Nephrology; Visit Provider Physical Medicine & Rehabilitation | DX: M54.12 Radiculopathy, cervical region (principal) | CPT/HCPCS: 95886; 95911 ==

== ENCOUNTER 2024-12-18 09:53 | Outpatient (REF) | payer OTHER, SELFPAY ==
--- OUTSIDE RECORDS SUMMARY | 2024-12-18 11:18 | XMS_ITS | Continuity of Care Document ---
Author Organization [facility] Address [address] [place] [address] [address] [place], [place] - Care Team Providers Care Heating And Ventilating Tender Name Role Phone Vern Coronel DO Primary Care Physician [phone] Encounter [facility] Date(s): 11/12/24 - 12/12/[address] [place] [address]- Attending Physician: Izabela Castillo Admitting Physician: AdmtrIzabela Referring Physician: Admtr Ar8 Encounter Type: Triage Allergies, Adverse Reactions, Alerts No Known Medication Allergies Medications acetaminophen-HYDROcodone 325 mg-5 mg oral tablet 1 tablet, By Mouth, Every 4 hours, PRN Pain , Severe, # 42 tablet, 0 Refills, Maintenance, 12/06/24 5:39:00 PM EDT, Tablet, [facility], Partial fill upon patient request if the prescription is for a schedule II opioid drug., 1 tablet By Mouth Every 4 hours,PRN:Pain , Severe, 163, cm, 12/06/24 13:16:00 EDT, Height, 80.7, kg, 12/06/24 13:16:00 EDT, Dry Weight Start Date: 12/06/24 Status: Ordered Quantity: 42.0 Unit: tablet Repeat number: 1 amLODIPine 10 mg oral tablet 10 mg, [...] Date: 12/08/23 Status: Ordered Repeat number: 1 Citracal Caplets Plus D By Mouth, Daily, 0 Refills, Maintenance, 12/06/24 1:05:00 PM EDT, Partial fill upon patient request if the prescription is for a schedule II opioid drug. Start Date: 12/06/24 Status: Ordered Repeat number: 1 clonazePAM 0.5 [...] Date: 12/08/23 Status: Ordered Repeat number: 1 tiZANidine 2 mg oral tablet 2 mg, 1, tablet, By Mouth, Every 8 hours, PRN, # 90 tablet, Refills 0, Tot. Refills 0, Maintenance,as needed for muscle spasm, 12/06/24 5:40:00 PM EDT, [facility] Partial fill upon patient request if the prescription is for a schedule II opioid drug., 163, cm, 12/06/24 13:16:00 EDT, Height, 80.7, kg, 12/06/24 13:16:00 EDT, Dry Weight Start Date: 12/06/24 Status: Ordered Quantity: 90.0 Unit: tablet Repeat number: 1 Vitamin D 78711 iu oral capsule 50,000 International_Units, By Mouth, Daily, Refills 0, Maintenance, 12/08/23 8:35:00 AM EDT, Partial fill upon patient request if the prescription is for a schedule II opioid drug. Start Date: 12/08/23 Status: Ordered Repeat number: 1 Vitamin D2 1999 intl units oral capsule 1 capsule = 50 mcg, By Mouth, Daily, 0 Refills, Maintenance, 12/06/24 1:06:00 PM EDT, Partial fill upon patient request if the prescription is for a schedule II opioid drug. Start Date: 12/06/24 Status: Ordered Repeat number: 1 Problem List Condition Confirmation Course Effective Dates Status Health Status Informant Hypertension Confirmed Active Status post parathyroidectomy Confirmed Active Hypothyroidism Confirmed Active Chronic prescription benzodiazepine use Confirmed Active Mild intermittent asthma Confirmed Active Obese class I Confirmed Active Primary hyperparathyroidism Confirmed Active Vitamin D deficiency Confirmed Active Social History Social History Type Response Smoking Status Former smoker, quit more than 30 days ago; Other: Quite in 2019; entered on: 12/08/23 Sex Sex Representation Female (finding) Laboratory * Event Display: Non Lab Results Authored Date: * Event Display: Non Lab Results Authored Date: Patient Care team information Care Team Personnel Name: Vern Coronel DO Position: RICH Renal MD Member Role: PCP Address: [address] [place] [address] Telecom: Care Team Related Persons Name: JAE BOWMAN Insurance Providers Guarantor name: ALEJANDRA BOWMAN Health Plan Information #: 1 Payer: [employer] PPO Member Number: NA Policy Number: NA Group Number: NA
[2024-12-18 11:49] LABS: Creatinine Urine 82.78 mg/dL; Microalbum/Creatinine Ratio Ur 8.4 ug/mg cr (<30)
[2024-12-18 11:51] LABS: Anion Gap 13 (12-20); Blood Urea Nitrogen 14 mg/dL (9-16); Calcium 8.9 mg/dL (8.4-10.2); Carbon Dioxide 24 mmol/L (22-29); Chloride 107 mmol/L (96-108); Cholesterol 170 mg/dL (<200); Estimated Glomerular Filt Rate > 60; Glucose Random 97 mg/dL (60-115); HDL Cholesterol 64 mg/dL (>40); LDL Cholesterol Calculated 84 mg/dL (<100); Magnesium 2.1 mg/dL (1.6-2.6); Phosphorus 3.8 mg/dL (2.7-4.5); Potassium 4.2 mmol/L (3.3-5.1); Sodium 140 mmol/L (135-145); Triglycerides 112 mg/dL (<150)
[2024-12-18 12:17] LABS: Thyroid Stimulating Hormone 1.26 uIU/mL (0.32-4.0); Vitamin D 25-OH Total 57.7 ng/mL (>30)
== END 2024-12-18 09:54 | disposition home or self-care (01) ==
LOC: HO.LAB 09:53
PROVIDERS: PCP Internal Medicine Nephrology; Visit Provider Internal Medicine Nephrology
DX: E21.3 Hyperparathyroidism, unspecified (principal); I10 Essential (primary) hypertension; E78.2 Mixed hyperlipidemia; E03.9 Hypothyroidism, unspecified
CPT/HCPCS: 36415; 80048; 80061; 82043; 82306; 82570; 83735; 84100; 84443

== ENCOUNTER 2024-12-27 11:35 | Outpatient (REF) | payer OTHER, SELFPAY ==
--- OUTSIDE RECORDS SUMMARY | 2024-12-27 12:36 | XMS_ITS | Continuity of Care Document ---
Author Organization [facility] Address [address] [place] [address] [address] [place] [address]- Care Team Providers Care Certified Rehabilitation Counselor Name Role Phone Vern Coronel DO Primary Care Physician [place] [facility] [place]s): 11/25/24 - 12/25/24 [facility] [address] [place] [address] Drive [address] [place] [address]- Encounter Type: Triage Allergies, Adverse Reactions, Alerts No Known Medication Allergies Medications acetaminophen-HYDROcodone 325 mg-5 mg oral tablet 1 tablet, By Mouth, Every 4 hours, PRN Pain , Severe, # 42 tablet, 0 Refills, Maintenance, 12/06/24 5:39:00 PM EDT, Tablet, [facility], Partial fill upon patient [...] 5:40:00 PM EDT, Route to Pharmacy Electronically, [facility], Partial fill upon patient request if the prescription is for a schedule II opioid drug., 163, cm, 12/06/24 13:16:00 EDT, Height, 80.7, kg, 12/06/24 13:16:00 EDT, Dry Weight Start Date: 12/06/24 Status: Ordered Quantity: 90.0 Unit: tablet Repeat number: 1 Vitamin D 47388 iu oral capsule 50,000 International_Units, By Mouth, Daily, Refills 0, Maintenance, 12/08/23 8:35:00 AM EDT, Partial fill upon patient request if the prescription is for a schedule II opioid drug. Start Date: 12/08/23 Status: Ordered Repeat number: 1 Vitamin D2 2000 intl units oral capsule 1 capsule = [...] RICH Renal MD Member Role: PCP Address: [address] [place] [address] Telecom: Care Team Related Persons Name: JAE BOWMAN Insurance Providers Guarantor name: ALEJANDRA BOWMAN Health Plan Information #: 1 Payer: [employer]IT B[employer] PPO Member Number: NA Policy Number: NA Group Number: NA
[2024-12-27 13:55] LABS: Parathyroid Hormone Intact 117.5 pg/mL (8.7-77.1)
== END 2024-12-27 11:36 | disposition home or self-care (01) ==
LOC: HO.LAB 11:35
PROVIDERS: PCP Internal Medicine Nephrology; Visit Provider Internal Medicine Nephrology
DX: E23.1 Drug-induced hypopituitarism (principal)
CPT/HCPCS: 36415; 83970

== ENCOUNTER 2025-03-10 15:52 | Outpatient (AMB) | payer OTHER, SELFPAY ==
[2025-03-10 15:59] VITALS: BP 130/76; PULSE 85; O2SAT 97; BMI 32.1
--- NOTE | 2025-03-10 15:59 | HO.NEPHOV_ITS ---
Vital Signs 03/10/25 15:59 Height 5 ft 4 in Weight 187 lb BMI 32.1 BP 130/76 Blood Pressure Location Rt brachial Position Sitting Pulse 85 Pulse Source Pulse Oximeter Pulse Oximetry (%) 97 Oxygen Delivery Method Room Air Intake Visit Reasons: ENP: HTN Bushing Press Operator Required: No Accompanied by: Self / Same As Patient Allergies No Known Allergies (No Known Allergies*) Allergy (Verified 03/10/25 16:04) Medication List - Last Reconciled 03/10/25 by Ger Huffman MD albuterol sulfate 90 mcg/actuation 2 puffs inhalation Q6H PRN amlodipine-benazepril 5-10 mg 1 cap PO DAILY calcium citrate-vitamin D3 200 mg-6.25 mcg (250 unit) (Citracal-D3 Petites) 2 tabs PO BID 30 days cholecalciferol (vitamin D3) 50 mcg PO DAILY 30 days clonazepam 0.5 mg PO TID levothyroxine 100 mcg PO DAILY mupirocin 2% 1 appl topical TID omega 4-swm-ubi-fish oil 1,200 (144-216) mg (Fish Oil) caps PO HPI Comments Details: The patient is a 59-year-old female presenting with concerns regarding hypertension management and hyperparathyroidism monitoring. The patient reports a history of essential hypertension, which became difficult to control following surgeries in September Her primary care physician adjusted her medication from amlodipine to a combination with Benazapril, but her blood pressure remained elevated. She no longer has a primary care physician after Dr. Coronel [facility], and she monitors her blood pressure at home, noting fluctuations between 130/80 mmHg and 160/98 mmHg. The patient has a history of hyperparathyroidism, for which she underwent parathyroid surgery on October 16, where three glands were removed. Despite the surgery, her parathyroid hormone levels remained elevated at 117 pg/mL in December, with normal calcium levels. She expresses concern about the recurrence of symptoms and is scheduled for further evaluation. 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 She is currently managed with levothyroxine, and her thyroid function tests in December showed a TSH level of 1.26, which is within normal limits. The patient has a history of asthma, although she reports no current symptoms and does not regularly use her inhaler. She is a former smoker, having smoked for approximately 30 years before quitting 18 years ago, with a brief relapse. [facility] Medical History (Updated 03/10/25 @ 16:24 by Ger Huffman MD) Personal history of nicotine dependence Chuck's disease Multinodular thyroid Hyperparathyroidism Vitamin D deficiency Osteopenia (~2018) Postmenopausal (~2015) Abnormal LFTs Transaminitis Surgical History (Updated 03/10/25 @ 16:04 by RADHA Escalera) History of parathyroidectomy (~09/2024) History of colonoscopy History of lumpectomy Family History Father CVD (cardiovascular disease) Mother Breast cancer Sister Hyperparathyroidism Social History Household Members: None Alcohol intake: current Alcohol intake frequency: holidays/special occasions only Patient Tobacco Use Status: Former Tobacco user Years Smoked: onset 13yo, 1/2-1ppd x 42yrs, 25pyh - quit 2019 Current occupational status: employed Current occupation: [employer] Review of Systems Const Denies fever(s) and Denies weight loss Card Denies chest pain Resp Denies cough and Denies hemoptysis GI Denies abdominal pain, Denies diarrhea and Denies nausea Musc Denies back pain Neuro Denies focal weakness Physical Exam Vital Signs: Last Vital Signs Pulse 85 03/10/25 15:59 BP 130/76 03/10/25 15:59 Pulse Ox 97 03/10/25 15:59 Oxygen Delivery Method Room Air 03/10/25 15:59 BMI result Body Mass Index 32.1 Comfortable Neck supple no JVD. Lungs entry equal no rales. Heart S1-S2 heard no gallop or rub. Abdomen soft nontender. Neuro alert awake oriented. No asterixis. Extremities no edema. Results Reviewed Nephrology Results: Sodium, (135-145) 140 mmol/L 12/18/24 Potassium, (3.3-5.1) 4.2 mmol/L 12/18/24 Chloride, (96-108) 107 mmol/L 12/18/24 Carbon Dioxide, (22-29) 24 mmol/L 12/18/24 BUN, (9-16) 14 mg/dL 12/18/24 Creatinine, (0.5-1.4) 0.68 mg/dL 12/18/24 Calcium, (8.4-10.2) 8.9 mg/dL 12/18/24 Phosphorus, (2.7-4.5) 3.8 mg/dL 12/18/24 PTH Intact, (8.7-77.1) 117.5 pg/mL H 12/27/24 Urine Creatinine 82.78 mg/dL 12/18/24 Assessment & Plan Assessment & Plan (1) Hyperparathyroidism: Code(s): E21.3 - Hyperparathyroidism, unspecified Category: Medical (2) HTN (hypertension): Code(s): I10 - Essential (primary) hypertension Category: Medical Plan The plan for managing the patient's hypertension includes obtaining a 24-hour blood pressure monitoring to assess fluctuations and determine if medication adjustments are necessary. This will involve using a new device that records blood pressure continuously and transmits data to a smartphone for analysis. For hyperparathyroidism, the plan includes re-evaluating parathyroid hormone and calcium levels to monitor for recurrence of symptoms. The patient is advised to follow up with an software developer intern for further management. The patient is encouraged to maintain her current exercise regimen and adhere to a low-salt diet to help manage her blood pressure. She is advised to stay hydrated, especially in hot weather, and to continue her current medications until further evaluation. Orders: Orders AMB 24 HR B/P Monitor PLACEMENT Today E21.3 - Hyperparathyroidism, unspecified, I10 - Essential (primary) hypertension Phosphorus Today E21.3 - Hyperparathyroidism, unspecified Magnesium Today E21.3 - Hyperparathyroidism, unspecified UA and rflx microscopic Today E21.3 - Hyperparathyroidism, unspecified Basic Metabolic Panel Today E21.3 - Hyperparathyroidism, unspecified Parathyroid Hormone Intact Today E21.3 - Hyperparathyroidism, unspecified Total Protein Urine Random Today E21.3 - Hyperparathyroidism, unspecified Creatinine Urine Today E21.3 - Hyperparathyroidism, unspecified Coding Level of Care Code New Pt Level 4 (31884) Diagnoses Hyperparathyroidism E21.3 HTN (hypertension) I10
--- OUTSIDE RECORDS SUMMARY | 2025-03-10 17:19 | XMS_ITS | Patient Health Record ---
Author Organization [facility] Address [address] [place] [address] Care Team Providers Care Hide Examiner Name Role Phone Misha Meka Primary Care Provider Eddie Cruz Unavailable [phone] Reason For Referral No Information Medications Medication SIG (Take, Route, Frequency, Duration) Notes Start Date End Date Status Fish Oil 1000 MG 1 capsule Orally Onc e a day Active clonazePAM 0.5 MG 1 tablet at bedtime Orally TID Active Flonase 50 MCG/DOSE 1 spray in each nost ril Nasally Once a day Active Flovent HFA 110 MCG/ACT 1 puff Inhalatio n Twice a day Active amLODIPine Besylate 10 MG 1 tablet Orall y Once a day Active Levothyroxine Sodium 100 MCG 1 tablet on an empty stomach in the morning Orally Once a day Active hydroCHLOROthiazide 12.5 MG 1 capsule in the morning Orally Once a day Active Social History Tobacco Use: Social History Observation Description Date Details (start date - stop date) Current Smoker NA - NA Tobacco Use/Smoking Question Answer Notes Patient is a current smoker How often do you smoke cigarettes? every day How many cigarettes a day do you smoke? 6-10 How soon after you wake up d o you smoke your first cigarette? after 60 minutes Are you interested in quitting? Thinking about q uitting Alcohol Screen Question Answer Notes Did you have a drink contain ing alcohol in the past year? Yes How often did you have a dri nk containing alcohol in the past year? 2 to 3 times a week (3 points) How many drinks did you have on a typical day when you were drinking in the past year? 5 or 6 drinks (2 points) How often did you have 6 or more drinks on one occasion in the past year? Weekly (3 points) Points 8 Interpretation Positive Section Notes: Smoker < 1/2 ppd; occasional alcohol Problems Problem Type SNOMED Code ICD Code Onset Dates Problem Status W/U Status Risk Notes Problem 027799255 Encounter for screening for malignant neoplasm of colon (Z12.11) Active confirmed Problem [id number] Pre-procedural examination (Z01.818) Active confirmed Plan Of Treatment Future Test Test Name Order Date COLONOSCOPY 04/05/2018 Insurance Providers Payer Name Payer Address Payer Phone Subscriber Number Group Number Insured Name Patient Relationship to Insured Coverage Start Date Coverage End Date R [address] [address] [place] [address] [phone] [id number] ALEJANDRA BOWMAN Self - patient is the insured Medical (General) History Medical History History ICD Code Asthma Hypertension Denies SD,DM,CVA,renal disease Anxiety Hypothyroidism Surgical History Surgery Date(Month/Year) Lumpectomy, left breast--benign
== END 2025-03-10 16:22 | disposition home or self-care (01) ==
LOC: HO.HKA 15:52
PROVIDERS: PCP Internal Medicine Nephrology; Visit Provider Internal Medicine Hypertension Specialist
DX: E21.3 Hyperparathyroidism, unspecified (principal); I10 Essential (primary) hypertension
CPT/HCPCS: 99204

== ENCOUNTER 2025-03-14 15:13 | Outpatient (REF) | payer OTHER, SELFPAY ==
--- OUTSIDE RECORDS SUMMARY | 2025-03-14 15:18 | XMS_ITS | Patient Health Record ---
Author Organization [facility] Address [address] [place] [id number] Care Team Providers Care Geoduck Diver Name Role Phone Misha Meka Primary Care Provider Eddie Cruz Unavailable [phone] Reason For Referral No Information Medications Medication [...] Problem Status W/U Status Risk Notes Problem [id number] Encounter for screening for malignant neoplasm of colon (Z12.11) Active confirmed Problem [id number] Pre-procedural examination (Z01.818) Active confirmed Plan Of Treatment Future Test Test Name Order Date COLONOSCOPY 04/05/2018 Insurance Providers Payer Name Payer Address Payer Phone Subscriber Number Group Number Insured Name Patient Relationship to Insured Coverage Start Date Coverage End Date R [address] [address] [place] [address] [id number] ALEJANDRA BOWMAN Self - patient is the insured Medical (General) History Medical History History ICD Code Asthma Hypertension Denies [place],DM,CVA,renal disease Anxiety Hypothyroidism Surgical History Surgery Date(Month/Year) Lumpectomy, left breast--benign
[2025-03-14 16:17] LABS: Anion Gap 15 (12-20); Blood Urea Nitrogen 13 mg/dL (9-16); Calcium 8.8 mg/dL (8.4-10.2); Carbon Dioxide 23 mmol/L (22-29); Chloride 99 mmol/L (96-108); Estimated Glomerular Filt Rate > 60; Glucose Random 131 mg/dL (60-115); Magnesium 2.2 mg/dL (1.6-2.6); Phosphorus 3.9 mg/dL (2.7-4.5); Potassium 4.3 mmol/L (3.3-5.1); Sodium 133 mmol/L (135-145)
[2025-03-14 16:23] LABS: Parathyroid Hormone Intact 112.1 pg/mL (8.7-77.1)
[2025-03-14 16:51] LABS: Appearance Urine Clear; Color Urine Yellow; Glucose Urine UA Negative (Negative); Leukocyte Esterase Urine Trace (Negative); Nitrite Urine Negative (Negative); UMIC TRIGGER UA YES; Urine Blood Negative (Negative); Urine Ketones Negative (Negative); Urine Protein Negative (Neg-Trace)
[2025-03-14 17:17] LABS: Creatinine Urine 77.69 mg/dL; Total Protein Urine Random < 7 mg/dL (<12)
[2025-03-14 17:20] LABS: Bacteria Urine None Seen (None Seen); Hyaline Casts Urine 0-2 /LPF (0-2); RBC Urine 0-2 /HPF (0-2); Squamous Epithelial Cell Urine 0-2 /HPF (0-2); WBC Urine 0-5 /HPF (0-5)
== END 2025-03-14 15:14 | disposition home or self-care (01) ==
LOC: HO.LAB 15:13
PROVIDERS: Visit Provider Internal Medicine Hypertension Specialist
DX: E21.3 Hyperparathyroidism, unspecified (principal)
CPT/HCPCS: 36415; 80048; 81001; 82570; 83735; 83970; 84100; 84156

== ENCOUNTER 2025-05-23 08:58 | Outpatient (AMB) | payer OTHER, SELFPAY ==
[2025-05-23 09:00] VITALS: BP 142/80; PULSE 79; O2SAT 83; BMI 32.5
--- NOTE | 2025-05-23 09:00 | A.OFFVIS_ITS ---
Vital Signs 05/23/25 09:00 Height 5 ft 4 in Weight 189 lb 6.033 oz BMI 32.5 BP 142/80 H Blood Pressure Location Rt brachial Position Sitting Pulse 79 Pulse Source Pulse Oximeter Pulse Oximetry (%) 83 L Oxygen Delivery Method Room Air Intake Visit Reasons: HYPERPARATHYROIDISM Intake Note: Patient present today for Hyperparathyroidism, unspecified. Environmental Program Manager Required: No Accompanied by: Self / Same As Patient Allergies No Known Allergies (No Known Allergies*) Allergy (Verified 05/23/25 09:06) Medication List - Last Reconciled 05/23/25 by Elysia Pires MD albuterol sulfate 90 mcg/actuation 2 puffs inhalation Q6H PRN amlodipine-benazepril 5-10 mg 1 cap PO DAILY calcium citrate-vitamin D3 200 mg-6.25 mcg (250 unit) (Citracal-D3 Petites) 2 tabs PO BID 30 days cholecalciferol (vitamin D3) 50 mcg PO DAILY 30 days clonazepam 0.5 mg PO TID levothyroxine 100 mcg PO DAILY mupirocin 2% 1 appl topical TID omega 6-buu-hat-fish oil 1,200 (144-216) mg (Fish Oil) caps PO HPI Comments Details: 60-year-old female coming in today for follow up of normocalcemic primary hyperparathyroidism status post exploratory parathyroidectomy 10/16/2024 with removal of hyperplastic right superior, left superior left inferior parathyroid glands with Dr. Josue Orlando at [facility] with the intraoperative PTH declined from 65 to 33 pg/mL. Coming in today for follow up. Hyperparathyroidism normocalcemic primary hyperparathyroidism: Her calcium was only elevated once in October 2018 at 10.3. Otherwise normal on multiple checks with the elevated PTH levels repeatedly. Poor 24 hour urine collection in 2018. Initially vitamin-D was low, which was then completed, PTH remained elevated. 24 hour urine calcium repeated from 2019 was normal. No history of kidney stones. Bone density scan from 07/29/2021, showed osteopenia of the lumbar spine with T- score of-1.9, osteopenia of the left femoral neck with T-score of-1.5, normal left total femur with T-score of-0.6 and osteopenia of the left forearm with T- score of-2.2. Bone density repeated 08/08/2023 showed osteopenia of the lumbar spine with T- score of-2.1 with a 2.3% decrease from previous, osteopenia of the left femoral neck with T-score of-1.1, normal bone density of the left femoral total with T- score of -0.4 with 3% increase from previous, osteoporosis of the left forearm with T-score of-2.6 with 4.6% decrease from previous bone density. Given worsening bone density of the forearm with PTH elevation, she was referred for surgical evaluation. status post exploratory parathyroidectomy 10/16/2024 with removal of hyperplastic right superior, left superior left inferior parathyroid glands with Dr. Josue Orlando at [facility] with the intraoperative PTH declined from 65 to 33 pg/mL 224 pg/mL in the recovery room. Did well postoperatively, some intermittent cramping in legs Vitamin D 2500 units (2000 plus 500 in citracal) Citracal 350 mg calcium daily Milk : none , cheese not really , yogurt : none Most recent blood work from 03/14/2025 done at [facility] showed normal kidney function with a EGFR greater than 60, calcium 8.8, normal phosphorus 3.9, normal magnesium 2.2, PTH intact elevated at 112.1 pg/mL. sister : hyperparathyroidism Hypothyroidism Thyroid nodule Also has a history hypothyroidism since her 40s. TPO antibodies negative from 2020 Currently on levothyroxine 100 mcg daily , good adherence , good administration Thyroid ultrasound 01/04/2023 showed a homogeneous gland with normal vascularity with a left midpole 1 cm solid hypoechoic TR 4 nodule that needs follow up. This was stable in size compared to ultrasound in 2019 previously.However sometime between 2019 and 2020, Dr. Puckett did US herself, [facility] showed this as a pseudonodule per her notes but I do not see the ultrasound in our records. Patient currently denies heat or cold intolerance, diarrhea or constipation, hair loss, palpitation, anxiety, mood changes, low energy, changes in appearance of eyes or vision changes, tremors, increased diaphoresis or dry skin. ? Weight gain 15 lbs in 1 year. per patient Patient denies any pain on swallowing or voice changes or difficulty breathing. Intermittent difficulty swallowing with big pills. Patient denies any history of childhood neck radiation. Denies having ever used lithium, amiodarone or biotin supplements. Patient denies any family history of thyroid cancer or thyroid disease. Physical exam General: sitting comfortably in no acute distress HEENT: normocephalic/atraumatic, Neck: supple, symmetrical, no thyromegaly , no dorsocervical or supraclavicular fat pads Cardiac: normal heart sounds Pulm: normal breath sounds B/L, no added breath sounds Abd: not distended Laboratory Tests 10/25/24 11/08/24 12/18/24 11:29 11:36 10:19 Creatinine Estimated GFR Calcium 9.4 9.0 8.9 Phosphorus Magnesium Albumin 4.2 4.3 25-OH Vitamin D Total 57.7 TSH 1.26 PTH Intact 12/27/24 03/14/25 11:45 15:32 Creatinine 0.78 Estimated GFR > 60 Calcium 8.8 Phosphorus 3.9 Magnesium 2.2 Albumin 25-OH Vitamin D Total TSH PTH Intact 117.5 H 112.1 H BONE DENSITOMETRY 08/08/23 CLINICAL INDICATION: Encounter for screening for osteoporosis. COMPARISON: Previous BD dated 07/29/2021 and baseline BD dated 06/27/2019. TECHNIQUE: Using a PurePlay DXA System (software version: 13.1) manufactured by [employer], dual-energy x-ray absorptiometry was performed of the lumbar spine, left hip, and left forearm radius 33%. The images are of good technical quality. Summary results are attached. FINDINGS: LEFT FEMUR, NECK: Current: BMD 0.881 g/cm2, Z-score -0.2, T-score -1.1, osteopenia. Prior: BMD 0.836 g/cm2. Baseline: BMD 0.907 g/cm2. LEFT FEMUR, TOTAL: Current: BMD 0.958 g/cm2, Z-score 0.1, T-score -0.4, normal, 3.0% increase from previous, 0.6% decrease from baseline (<5% change is not significant). Prior: BMD 0.930 g/cm2. Baseline: BMD 0.964 g/cm2. AP SPINE L1-L4: Current: BMD 0.930 g/cm2, Z-score -1.4, T-score -2.1, osteopenia, 2.3% decrease from previous, 5.1% decrease from baseline (<5% change is not significant). Prior: BMD 0.952 g/cm2. Baseline: BMD 0.980 g/cm2. LEFT FOREARM RADIUS 33%: BMD 0.649 g/cm2, Z-score -1.9, T-score -2.6, osteoporosis, 4.6% decrease from previous, 12.7% decrease from baseline (<5% change is not significant). Prior: BMD 0.680 g/cm2. Baseline: BMD 0.743 g/cm2. IDENTIFIED RISK FACTORS: Menopause. HISTORY OF FRACTURE: None listed. MEDICATIONS: Calcium supplements or multivitamin, vitamin D. MM/XR DEXA appendicular skeleton IMPRESSION: 1. DIAGNOSIS: Osteoporosis based on the lowest T-score value of -2.6 in the forearm radius 33% applying World Health Organization criteria. 2. 10-YEAR FRACTURE RISK PREDICTION, FRAX: According to the guidelines, FRAX calculation should only be performed on patients in the osteopenia bone density category. Therefore, FRAX was not performed on this patient. US THYROID 01/04/23 CLINICAL INFORMATION: Nontoxic multinodular goiter. COMPARISON: Ultrasound soft tissue head/neck thyroid dated 03/11/2020 and 09/25/2019. TECHNIQUE: Linear transducer grayscale and color Doppler examination with attention to the region of the thyroid. FINDINGS: SIZE: Measurements of the thyroid lobes and nodules are given in sagittal, anteroposterior and transverse dimensions respectively. Right Thyroid Lobe: 3.5 x 1.2 x 1.2 cm, volume 2.6 mL. Previously 3.3 x 1.3 x 1.2 cm, volume 2.7 mL. Parenchyma: The gland echotexture is homogeneous. Thyroid vascularity is normal. Left Thyroid Lobe: 3.1 x 0.7 x 1.3 cm, volume 1.5 mL. Previously 2.9 x 0.9 x 1.2 cm, volume 1.6 mL. Parenchyma: The gland echotexture is homogeneous. Thyroid vascularity is normal. Isthmus: 0.2 cm in maximum AP dimension. Previously 0.2 cm. Estimated total number of nodules greater than or equal to 1 cm: 0. Heel Brusher nodules are described as follows: 1. Location: Left mid. Size: 1.0 x 0.4 x 0.5 cm, volume 0.1 mL. Previously: 1.0 x 0.5 x 0.5 cm, volume 0.1 mL. Nodule characteristics: Composition: Solid (2). Echogenicity: Hypoechoic (2). Shape: Not taller than wide (0). Margins: Ill-defined (0). Echogenic Foci: None (0). ACR TI-RADS total points: 4 ACR TI-RADS category: 4 Significant change in size (>/= 20% in 2 dimensions and minimal increase of 2 mm or 50% or greater increase in volume): No Change in features: No Change in ACR TI-RADS risk category: No NODES: No lymphadenopathy is seen in the tissue surrounding the thyroid gland. US/US thyroid IMPRESSION: Stable left thyroid nodule. According to TI RADS criteria, continued ultrasound follow-up in one, 2 and 4 years recommended. [facility] Medical History (Updated 05/23/25 @ 09:53 by Elysia Pires MD) Thyroid nodule Hypothyroid Osteoporosis Personal history of nicotine dependence Chuck's disease Multinodular thyroid Hyperparathyroidism Vitamin D deficiency Osteopenia (~2018) Postmenopausal (~2015) Abnormal LFTs Transaminitis Surgical History (Updated 05/23/25 @ 09:08 by RADHA Loera) History of back surgery History of parathyroidectomy (~09/2024) History of colonoscopy History of lumpectomy Family History Father CVD (cardiovascular disease) Mother Breast cancer Sister Hyperparathyroidism Social History Household Members: None Alcohol intake: current Alcohol intake frequency: holidays/special occasions only Patient Tobacco Use Status: Former Tobacco user Years Smoked: onset 13yo, 1/2-1ppd x 42yrs, 25pyh - quit 2019 Current occupational status: employed Current occupation: [employer] Physical Exam Vital Signs: Last Vital Signs Pulse 79 05/23/25 09:00 BP 142/80 H 05/23/25 09:00 Pulse Ox 83 L 05/23/25 09:00 Oxygen Delivery Method Room Air 05/23/25 09:00 BMI result Body Mass Index 32.5 Assessment & Plan Assessment & Plan (1) Hyperparathyroidism: Code(s): E21.3 - Hyperparathyroidism, unspecified Category: Medical Plan: 60-year-old female with a history of normocalcemic hyperparathyroidism with osteoporosis of the forearm with T-score of-2.6 on bone density from 2022 status post exploratory parathyroidectomy 10/16/2024 with removal of hyperplastic right superior, left superior left inferior parathyroid glands with Dr. Josue Orlando at [facility] with the intraoperative PTH declined from 65 to 33 pg/mL 224 pg/mL in the recovery room. Most recent blood work from 03/14/2025 done at [facility] showed normal kidney function with a EGFR greater than 60, calcium 8.8, normal phosphorus 3.9, normal magnesium 2.2, PTH intact elevated at 112.1 pg/mL. I have had a lot of variation in the PTH assay at our lab so I will have her repeat the PTH level at [facility]. Otherwise we will plan to monitor this annually for a few years with her calcium levels. She is barely taking any calcium right now with the only 350 mg in her supplement and barely any nutritional intake, advised her to increase calcium in diet for good bone health. Continue maintaining current vitamin-D supplementation. At this point we will plan to repeat a bone density scan sometime in September 2026 to allow her bones enough time to allow for bone accrual post parathyroid surgery. When I see her back annually with calcium labs I will also check her bone resorption markers. Plan: -continue vitamin-D 2000 units daily -start incorporating more calcium in diet to allow a 1000 mg daily -check PTH level at [facility] now, we will reach out with the results -labs to be repeated prior to 1 year follow up in May 2026 -bone density to be repeated in September 2026 (2) Osteoporosis: Code(s): M81.0 - Age-related osteoporosis without current pathological fracture Category: Medical Qualifiers: Osteoporosis type: localized Presence of current pathological fracture: without current pathological fracture Qualified Code(s): M81.6 - Localized osteoporosis [[place]] Plan: See above (3) Thyroid nodule: Code(s): E04.1 - Nontoxic single thyroid nodule Category: Medical Plan: 60-year-old female with no family history of thyroid cancer, with no personal history of head or neck radiation who was also found to have a thyroid nodule on thyroid ultrasound sometime in 2019? Most recent thyroid ultrasound from 202201/04/2023 showed a homogeneous gland with normal vascularity with a left midpole 1 cm solid hypoechoic TR 4 nodule that needs follow up. This was stable in size compared to ultrasound in 2020 previously.However sometime between 2019 and 2020, Dr. Puckett did US herself, [facility] showed this as a pseudonodule per her notes but I do not see the ultrasound in our records. Her TPO antibodies were actually negative from 2022. She otherwise has a relatively homogeneous gland so I am not sure if this is actually a pseudonodule. I would like to repeat a thyroid ultrasound now just to follow up in this nodule. 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 Last TSH from December 2024 was within normal limits. Plan: -continue levothyroxine 100 mcg daily -we will plan to repeat TSH with reflex free T4 annually Plan I spent 45 minutes in reviewing the record, seeing the patient and documenting in the medical record. Orders: Orders Collagen Type I C-Telopeptide 04/27/26 E03.9 - Hypothyroidism, unspecified, E06.3 - Autoimmune thyroiditis, E21.3 - Hyperparathyroidism, unspecified, M81.0 - Age-related osteoporosis without current pathological fracture Alkaline Phosphatase Bone 04/27/26 E03.9 - Hypothyroidism, unspecified, E06.3 - Autoimmune thyroiditis, E21.3 - Hyperparathyroidism, unspecified, M81.0 - Age-related osteoporosis without current pathological fracture Creatinine 04/27/26 E03.9 - Hypothyroidism, unspecified, E06.3 - Autoimmune thyroiditis, E21.3 - Hyperparathyroidism, unspecified, M81.0 - Age-related osteoporosis without current pathological fracture Parathyroid Hormone Intact Today E21.3 - Hyperparathyroidism, unspecified, M81.0 - Age-related osteoporosis without current pathological fracture Calcium 04/27/26 E03.9 - Hypothyroidism, unspecified, E06.3 - Autoimmune thyroiditis, E21.3 - Hyperparathyroidism, unspecified, M81.0 - Age-related osteoporosis without current pathological fracture Albumin Level 04/27/26 E03.9 - Hypothyroidism, unspecified, E06.3 - Autoimmune thyroiditis, E21.3 - Hyperparathyroidism, unspecified, M81.0 - Age-related osteoporosis without current pathological fracture Calcium, Ionized 04/27/26 E03.9 - Hypothyroidism, unspecified, E06.3 - Autoimmune thyroiditis, E21.3 - Hyperparathyroidism, unspecified, M81.0 - Age- related osteoporosis without current pathological fracture TSH reflex Free T4 04/27/26 E03.9 - Hypothyroidism, unspecified, E06.3 - Autoimmune thyroiditis, E21.3 - Hyperparathyroidism, unspecified, M81.0 - Age- related osteoporosis without current pathological fracture Vitamin D 25-OH Total 04/27/26 E03.9 - Hypothyroidism, unspecified, E06.3 - Autoimmune thyroiditis, E21.3 - Hyperparathyroidism, unspecified, M81.0 - Age- related osteoporosis without current pathological fracture Phosphorus 04/27/26 E03.9 - Hypothyroidism, unspecified, E06.3 - Autoimmune thyroiditis, E21.3 - Hyperparathyroidism, unspecified, M81.0 - Age-related osteoporosis without current pathological fracture US thyroid Today E04.1 - Nontoxic single thyroid nodule Medications: New levothyroxine 100 mcg PO DAILY 90 tabs 3RF Patient Instructions: For bone health Continue vitamin D supplements Try to incorporate 2-3 servings of calcium rich foods daily Do blood work at [facility] [place] , please make sure thye fax results to me Do thyroid ultrasound Do another set of blood work , at our lab, a week before your next follow up in 1 year , orders placed Coding Level of Care Code Est Pt Level 5 (49367) Diagnoses Hyperparathyroidism E21.3 Localized osteoporosis without current pathological fracture M81.6 Osteoporosis type: localized Presence of current pathological fracture: without current pathological fracture Thyroid nodule E04.1 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
--- OUTSIDE RECORDS SUMMARY | 2025-05-23 09:42 | XMS_ITS | Clinical Summary ---
Author Organization [facility] Address [address] [facility] [address] [place] [id number] Phone Care Team Providers Care Inspector Conveyor Line Name Role Phone CoronelVern sharp Primary Care Provider [phone] Allergies No known active allergies Medications omega-3 fatty acids (FISH OIL CONCENTRATE) 1,000 mg Cap Take 1 capsule by mouth 3 (three) times a day. Active clonazePAM (KLONOPIN) 0.5 MG tablet Take 1 tablet by mouth 3 (three) times a day. Active amLODIPine (NORVASC) 10 MG tablet Take 1 tablet by mouth daily. Active fluticasone propionate (FLONASE) 50 mcg/actuation nasal spray 2 sprays by Nasal route as needed. Active levothyroxine (SYNTHROID, LEVOTHROID) 100 MCG tablet 1 tablet Once a day Active Active Problems No known active problems Immunizations Immunization Administration Dates Next Due Influenza Quadrivalent Prese rvative Free IM 07/16/2019,07/06/2018,06/15/2017,2015 Rabies-im 03/18/2017 Family History Medical History Relation Comments Hypertension Father Breast cancer Maternal Aunt Anxiety disorder Mother Breast cancer Mother Hypertension Mother Relation Status Comments Father Maternal Aunt Mother Social History Tobacco Use Types Packs/Day Years Used Date Smoking Tobacco: Former Cigarettes Smokeless Tobacco: Never Tobacco Cessation:Counseling Given: Not Answered Comments:10 cigs/week Alcohol Use Standard Drinks/Week Comments Yes 0 (1 standard drink = 0.6 oz pur e alcohol) Education Answer Date Recorded Are you interested in more education? Not on talia e 01/13/2023 Are you concerned about learning? Not on file 01/13/2023 No 01/13/2023 No 01/13/2023 Digital Access Answer Date Recorded No 02/11/2023 No 02/11/2023 Reliable internet access at home? Not on file 02/11/2023 Device with a working camera? Not on file Comments No Sex and Gender Information Value Date Recorded Sex Assigned at Not on file Legal Sex Female 4:10 PM EST Gender Identity Not on file Sexual Orientation Not on file Occupation Industry Job Start Date Job End Date Working full-time Not on file Not on file Not on talia e Last Filed Vital Signs Vital Sign Reading Time Taken Comments Blood Pressure 132/78 01/01/2025 10:52 AM EDT Pulse 80 05/27/2019 2:16 PM EDT Temperature 36.6 C (97.9 F) 05/27/2019 2:16 PM EDT Respiratory Rate - - Oxygen Saturation 97% 05/27/2019 2:16 PM EDT Inhaled Oxygen Concentration - - Weight 83.9 kg (185 lb) 01/01/2025 10:52 AM EDT Height 162.1 cm (5' 3.8 ) 01/01/2025 10:52 AM ED T Body Mass Index 31.95 01/01/2025 10:52 AM EDT Plan of Treatment Health Maintenance Due Date Last Done Comments LIPID PANEL 1966 TSH LEVEL 1966 DEPRESSION SCREENING 1978 SMOKING Hx and SMOKELESS TOBACCO SCREENING 1979 HEPATITIS C SCREENING 1984 HIV ONE-TIME SCREENING (18-65 YEARS) 1984 SCREENING FOR DIABETES 2001 MAMMOGRAM 2006 COLOGUARD 2011 COLONOSCOPY 2011 COLORECTAL CANCER SCREENING 2011 FIT TEST 2011 FOBT 2011 SIGMOIDOSCOPY 2011 VIRTUAL COLONOSCOPY 2011 PNEUMOCOCCAL VACCINES (50+ years) (1 of 1 - PCV) 2016 COVID-19 VACCINE (4 - season) 2024 10/15/2021, 10/05/2020, 09/14/2020 INFLUENZA VACCINE (#1) 2025 2, 08/19/2021, 07/09/2020, Additional history exists PAP SMEAR 02/03/2026 02/03/2023, 07/20, 08/13/2019, Additional history exists Adult Td,Tdap Booster 11/12/2028 11/12/2018, 008 ZOSTER VACCINES Completed 05/29/2022, 12/07/2021 HEPATITIS A VACCINES Aged Out No long er eligible based on patient's age to complete this topic HIB VACCINES Aged Out No longer eligi ble based on patient's age to complete this topic MENINGOCOCCAL VACCINES (ACWY) Aged Out No longer eligible based on patient's age to complete this topic MENINGOCOCCAL VACCINES (B) Aged Out N o longer eligible based on patient's age to complete this topic Medical Devices Not on file Procedures Procedure Name Priority Date/Time Associated Diagnosis Comments PAP TEST Routine 02/03/2023 12:00 AM EDT from Last 3 Months or Most Recently Relevant to Health Maintenance Results * Pap Test (02/03/2023 12:00 AM EDT) 02/03/2023 02/06/2023 9:2 1 AM EDT Narrative SEE NARRATIVE - 02/09/2023 10:46 AM EDT [address] [address] Multifocal Lens Assembler: Majo Donis MD ORE BU[employer]ER Cytology Report FINAL DIAGNOSIS A. PAP SMEAR (SUREPATH) CE: SPECIMEN ADEQUACY: Satisfactory for evaluation; transformation zone present. INTERPRETATION: NEGATIVE FOR INTRAEPITHELIAL LESION OR MALIGNANCY. Electronically Signed Out By: TACHO Kimball(ASCP) TACHO Cooper(ASCP) The Pap test is a screening test primarily for squamous cancers and precursors and has associated false-negative and false-positive results. New technologies such as liquid-based preparations may decrease but will not eliminate all false-negative results. Regular sampling and follow-up of unexplained clinical signs and symptoms are recommended to minimize false negative results. PROCEDURES/ADDENDA HPV Testing (Requested) Ordered Date: 02/06/2023 A. PAP SMEAR (SUREPATH) CE: Human Papilloma Virus Test NEGATIVE for high-risk Human Papilloma Virus types 16, 18, 45 and the Other high risk probe set (Includes 31, 33, 35, 39, 51, 52, 56, 58, 59, 66, 68) Note: Testing performed by [employer] Onclarity HR-HPV analysis. Clinical correlation is advised. This HPV test was performed at [facility], [address] [place] [address]. This test has been FDA approved for SurePath cervical cytology specimens. The accuracy and precision of this test for all other specimen sources has been verified in the Cytopathology Laboratory of the [facility] and has not been cleared or approved by the U.S. Food and Drug Administration. Clinical correlation is advised. CLINICAL HISTORY Date of Last Menstrual Period: Not Provided Menstrual History: Unknown Other Clinical Conditions: Screening Pap SPECIMEN SOURCE A: PAP SMEAR (SUREPATH) CE Patient Name: TALIB ROEEEN : 1965 (Age: 57) Sex: F Institution: [facility] Location: [facility] Date of Collection: 02/03/2023 Date of Reported: 02/09/2023 10:46 Results to: Meka Cabral NP Meka Cabral MAILING SECTION CLERK CYTOLOGY ORDERABLES Final Resul t SEE NARRATIVE from Last 3 Months or Most Recently Relevant to Health Maintenance Insurance [facility] BENEFITS ADMINISTRATORS [facility] [employer] [facility]MINIST[facility] ADMINISTRATORS [facility] ADMIN[employer]RATORS Member Subscriber Plan / Payer ( fective 2019-Present) Name:Lulu Roehleen Relation to Subscriber:Self Name:Lulu Roehleen Payer ID:[id number] (NA) Type:PPO Address: [place] [id number] [place] [employer] BENEFITS ADMINISTRATORS [facility] [employer] [facility] ADMINISTRAT[email or web address] [facility] [email or web address] BENEFITS ADMINISTRATORS [facility] BENEFITS ADMINISTRATORS Care Teams Inspector Conveyor Line Relationship Specialty Start Date End Date Vern Coronel DO [address] [place] [id number] PCP - General Internal Medicine 01/01/25 Additional Source Comments The information contained in this document represents components of the legal health record. It is not the complete legal health record.[facility]
--- OUTSIDE RECORDS SUMMARY | 2025-05-23 09:42 | XMS_ITS | Patient Health Record ---
Author Organization [facility] Address [address] [place] [address] Care Team Providers Care Relocation Commissioner Name Role Phone Misha Meka Primary Care Provider Eddie Cruz Unavailable [phone] Reason For Referral No Information Medications Medication [...] Problem Status W/U Status Risk Notes Problem [id number] Encounter for screening for malignant neoplasm of colon (Z12.11) Active confirmed Problem [id number] Pre-procedural examination (Z01.818) Active confirmed Plan Of Treatment Future Test Test Name Order Date COLONOSCOPY 04/05/2018 Insurance Providers Payer Name Payer Address Payer Phone Subscriber Number Group Number Insured Name Patient Relationship to Insured Coverage Start Date Coverage End Date R [address] [address] [place] [address] [phone] [id number] ALEJANDRA BOWMAN Self - patient is the insured Medical (General) History Medical History History ICD Code Asthma Hypertension Denies [place],DM,CVA,renal disease Anxiety Hypothyroidism Surgical History Surgery Date(Month/Year) Lumpectomy, left breast--benign
== END 2025-05-23 09:47 | disposition home or self-care (01) ==
LOC: HO.ENCR 08:58
PROVIDERS: PCP Internal Medicine Nephrology; Visit Provider Student in an Organized Health Care Education/Training Program
DX: E21.3 Hyperparathyroidism, unspecified (principal); M81.6 Localized osteoporosis [Lequesne]; E04.1 Nontoxic single thyroid nodule; E06.3 Autoimmune thyroiditis
CPT/HCPCS: 99215

== ENCOUNTER → 2025-05-23 08:58 | Outpatient (BNVA) | payer OTHER, SELFPAY | PROVIDERS: PCP Internal Medicine Nephrology; Visit Provider Student in an Organized Health Care Education/Training Program | DX: E21.0 Primary hyperparathyroidism (principal); M81.6 Localized osteoporosis [Lequesne]; E04.1 Nontoxic single thyroid nodule; E06.3 Autoimmune thyroiditis; Z98.890 Other specified postprocedural states; Z87.891 Personal history of nicotine dependence; Z13.89 Encounter for screening for other disorder ==

== ENCOUNTER 2025-05-29 11:56 | Outpatient (AMB) | payer OTHER, SELFPAY ==
--- NOTE | 2025-05-29 12:04 | HO.NEPHOV ---
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 Required: No Accompanied by: Self / Same As Patient Allergies No Known Allergies (No Known Allergies*) Allergy (Verified 05/29/25 12:07) Medication List - Last Reconciled 05/29/25 by Ger Huffman MD albuterol sulfate 90 mcg/actuation 2 puffs inhalation Q6H PRN amlodipine-benazepril 5-10 mg 1 cap PO DAILY calcium citrate-vitamin D3 200 mg-6.25 mcg (250 unit) (Citracal-D3 Petites) 1 tab PO DAILY cholecalciferol (vitamin D3) 50 mcg PO DAILY 30 days clonazepam 0.5 mg PO TID levothyroxine 100 mcg PO DAILY mupirocin 2% 1 appl topical TID omega 2-lfj-cmr-fish oil 1,200 (144-216) mg (Fish Oil) caps PO HPI Comments Details: The patient is a 59-year-old female presenting with concerns regarding hypertension management and hyperparathyroidism monitoring. The patient reports a history of essential hypertension, which became difficult to control following surgeries in September Her primary care physician adjusted her medication from amlodipine to a combination with Benazapril, but her blood pressure remained elevated. She no longer has a primary care physician after Dr. Coronel [facility], and she monitors her blood pressure at home, noting fluctuations between 130/80 mmHg and 160/98 mmHg. The patient has a history of hyperparathyroidism, for which she underwent parathyroid surgery on October 16, where three glands were removed. Despite the surgery, her parathyroid hormone levels remained elevated at 117 pg/mL in December, with normal calcium levels. She expresses concern about the recurrence of symptoms and is scheduled for further evaluation. 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 She is currently managed with levothyroxine, and her thyroid function tests in December showed a TSH level of 1.26, which is within normal limits. The patient has a history of asthma, although she reports no current symptoms and does not regularly use her inhaler. She is a former smoker, having smoked for approximately 30 years before quitting 18 years ago, with a brief relapse. 05/29/25: The patient is a 60-year-old woman seen for hypertension management. Home blood pressure readings often elevated, with values such as 160/90 mmHg and 150/98 mmHg, despite using a calibrated cuff. Blood pressure spikes during doctor visits, consistent with white coat hypertension. Recent endocrinology visit recorded blood pressure at 130/90 mmHg, considered high by the delivery and installation subcontractor. Patient wishes to avoid additional antihypertensive medications due to occasional low readings. Post-surgery in November, experienced difficulty controlling blood pressure while hospitalized. Described severe pain during this time, raising concerns about a possible cardiac event, though no definitive diagnosis was mentioned. Maintains an active lifestyle, walking approximately 7 miles daily and participating in weightlifting classes twice a week. She underwent 24 hr ABPM Social History: - Engages in regular physical activity, walking approximately 7 miles daily. - Participates in weightlifting classes twice a week. Diagnostic Results: - Blood pressure readings: 24-hour average of 123/78 mmHg, with occasional spikes noted. [facility] Medical History (Updated 05/23/25 @ 09:53 by Elysia Pires MD) Thyroid nodule Hypothyroid Osteoporosis Personal history of nicotine dependence Chuck's disease Multinodular thyroid Hyperparathyroidism Vitamin D deficiency Osteopenia (~2018) Postmenopausal (~2015) Abnormal LFTs Transaminitis Surgical History History of back surgery History of parathyroidectomy (~09/2024) History of colonoscopy History of lumpectomy Family History Father CVD (cardiovascular disease) Mother Breast cancer Sister Hyperparathyroidism Social History Household Members: None Alcohol intake: current Alcohol intake frequency: holidays/special occasions only Patient Tobacco Use Status: Former Tobacco user Years Smoked: onset 13yo, 1/2-1ppd x 42yrs, 25pyh - quit 2019 Current occupational status: employed Current occupation: [employer] Physical Exam Vital Signs: Last Vital Signs Pulse 79 05/29/25 12:08 BP 118/62 05/29/25 12:08 Pulse Ox 97 05/29/25 12:08 Oxygen Delivery Method Room Air 05/29/25 12:08 Comfortable Neck supple no JVD. Lungs entry equal no rales. Heart S1-S2 heard no gallop or rub. Abdomen soft nontender. Neuro alert awake oriented. No asterixis. Extremities no edema. Office Procedures 24 B/P Monitor Interpretation Details: Well controlled HTN Dipping present No white coat effect CPT: 26168 24 Hour Blood Pressure Monitor Reading Procedure code (CPT) selection complete Results Reviewed Nephrology Results: Sodium, (135-145) 133 mmol/L L 03/14/25 Potassium, (3.3-5.1) 4.3 mmol/L 03/14/25 Chloride, (96-108) 99 mmol/L 03/14/25 Carbon Dioxide, (22-29) 23 mmol/L 03/14/25 BUN, (9-16) 13 mg/dL 03/14/25 Creatinine, (0.5-1.4) 0.78 mg/dL 03/14/25 Calcium, (8.4-10.2) 8.8 mg/dL 03/14/25 Phosphorus, (2.7-4.5) 3.9 mg/dL 03/14/25 PTH Intact, (8.7-77.1) 112.1 pg/mL H 03/14/25 Urine Protein, (Neg-Trace) Negative mg/dL 03/14/25 Urine Creatinine 77.69 mg/dL 03/14/25 Assessment & Plan Assessment & Plan (1) Hyperparathyroidism: Code(s): E21.3 - Hyperparathyroidism, unspecified Category: Medical (2) HTN (hypertension): Code(s): I10 - Essential (primary) hypertension Category: Medical Plan The plan for managing the patient's hypertension includes obtaining a 24-hour blood pressure monitoring to assess fluctuations and determine if medication adjustments are necessary. This will involve using a new device that records blood pressure continuously and transmits data to a smartphone for analysis. For hyperparathyroidism, the plan includes re-evaluating parathyroid hormone and calcium levels to monitor for recurrence of symptoms. The patient is advised to follow up with an delivery and installation subcontractor for further management. The patient is encouraged to maintain her current exercise regimen and adhere to a low-salt diet to help manage her blood pressure. She is advised to stay hydrated, especially in hot weather, and to continue her current medications until further evaluation. 05/29/25 Based on 24 hr ABPM BP is well controlled Nocturnal dipping is present No significant white coat effect For now ,no change in medications stay on low salt diet RTC PRN Orders: Orders AMB 24 HR B/P Monitor INTERPRETATION Today Ger Huffman MD I10 - Essential (primary) hypertension Medications: Changed From calcium citrate-vitamin D3 200 mg-6.25 mcg (250 unit) (Citracal-D3 Petites) 2 tabs PO BID 30 days 120 tabs 11RF M81.0 - Age-related osteoporosis without current pathological fracture To calcium citrate-vitamin D3 200 mg-6.25 mcg (250 unit) (Citracal-D3 Petites) 1 tab PO DAILY M81.0 - Age-related osteoporosis without current pathological fracture Ivis Lobato DO Coding Level of Care Code Est Pt Level 3 (85840) Diagnoses Hyperparathyroidism E21.3 HTN (hypertension) I10 CPT Codes - CPT: 30233 24 Hour Blood Pressure Monitor Reading ([id number])
[2025-05-29 12:08] VITALS: BP 118/62; PULSE 79; O2SAT 97
== END 2025-05-29 12:20 | disposition home or self-care (01) ==
LOC: HO.HKA 11:57
PROVIDERS: PCP Internal Medicine Nephrology; Visit Provider Internal Medicine Hypertension Specialist
DX: E21.3 Hyperparathyroidism, unspecified (principal); I10 Essential (primary) hypertension
CPT/HCPCS: 93790; 99213

== ENCOUNTER → 2025-05-29 11:56 | Outpatient (BNVA) | payer OTHER, SELFPAY | PROVIDERS: PCP Internal Medicine Nephrology; Visit Provider Internal Medicine Hypertension Specialist | DX: I10 Essential (primary) hypertension (principal); E21.3 Hyperparathyroidism, unspecified | CPT/HCPCS: 93786; 93788 ==

== ENCOUNTER 2025-07-11 15:03 | Outpatient (REF) | payer OTHER, SELFPAY ==
--- NOTE | ~2025-07-11 | MM_ITS ---
EXAMINATION: MM SCREENING DIGITAL BREAST TOMOSYNTHESIS, BILATERAL CLINICAL INFORMATION: Screening. Asymptomatic. COMPARISON: Mammography: Comparison is made with available priors TECHNIQUE: Digital breast mammography with tomosynthesis is performed in both the craniocaudal and mediolateral oblique views along with computer-aided detection (CAD). FINDINGS: The breasts are heterogeneously dense, which may obscure small masses. There are no significant masses, abnormal calcifications, or other abnormalities. MM/MM tomosynthesis screening BI IMPRESSION: No mammographic evidence of malignancy. ASSESSMENT: BI-RADS Category 1: Negative RECOMMENDATION: Routine annual mammography screening. 1 year F/U This examination should not preclude the clinical evaluation of a suspicious palpable abnormality. This patient's information was entered into a reminder system with a target due date for their next mammogram. Electronically signed by: Karlie Oropeza DO 07/15/2025 01:22 PM EDT
--- OUTSIDE RECORDS SUMMARY | 2025-07-11 16:42 | XMS_ITS | Patient Health Record ---
Author Organization [facility] Address [address] [place] [address] Care Team Providers Care Er Rn Name Role Phone Misha Meka Primary Care Provider Eddie Cruz Unavailable [phone] Reason For Referral No Information Medications Medication [...] Problem Status W/U Status Risk Notes Problem Screening for malignant neoplasm of colon ([id number]) Encounter for screening for malignant neoplasm of colon (Z12.11) Active confirmed Problem Pre-procedure evaluation check (369850099) Pre-procedural examination (Z01.818) Active confirmed Plan Of Treatment Future Test Test Name Order Date COLONOSCOPY 04/05/2018 Insurance Providers Payer Name Payer Address Payer Phone Subscriber Number Group Number Insured Name Patient Relationship to Insured Coverage Start Date Coverage End Date R [address] [address] [place] [address] [id number] ALEJANDRA BOWMAN Self - patient is the insured Medical (General) History Medical History History ICD Code Asthma Hypertension Denies [place],DM,CVA,renal disease Anxiety Hypothyroidism Surgical History Surgery Date(Month/Year) Lumpectomy, left breast--benign
--- OUTSIDE RECORDS SUMMARY | 2025-07-11 16:42 | XMS_ITS | Clinical Summary ---
Author Organization [facility] Address [address] [facility] [facility] [address] [place] [address] Phone Care Team Providers Care Prepress Proofer Name Role Phone CoronelVern sharp Primary Care Provider [phone] Allergies No known active allergies Medications omega-3 [...] years) (1 of 1 - PCV) 2016 INFLUENZA VACCINE (#1) 2025 2, 08/19/2021, 07/09/2020, Additional history exists COVID-19 VACCINE ( season) 2025 10/15/2021, 10/05/2020, 09/14/2020 PAP SMEAR 02/03/2026 02/03/2023, 07/20, 08/13/2019, Additional history exists Adult Td,Tdap Booster 11/12/2028 11/12/2018, 008 RSV VACCINE (1 - 1-dose 75+ series) 2041 ZOSTER VACCINES Completed 05/29/2022, 12/07/2021 HEPATITIS A [...] SEE NARRATIVE - 02/09/2023 10:46 AM EDT [address] [address] Motor Vehicles Inspector: Majo Donis MD [employer] Cytology Report FINAL DIAGNOSIS A. PAP SMEAR [...] 59, 66, 68) Note: Testing performed by [employer] Onclarity HR-HPV analysis. Clinical correlation is advised. This HPV test was performed at [facility], [address] [place] [address]. This test has been FDA approved for SurePath cervical cytology specimens. The accuracy and precision of this test for all other specimen sources has been verified in the Cytopathology Laboratory of the [facility] and has not been cleared or approved by the U.S. Food and Drug Administration. Clinical correlation is advised. CLINICAL HISTORY Date of Last Menstrual Period: Not Provided Menstrual History: Unknown Other Clinical Conditions: Screening Pap SPECIMEN SOURCE A: PAP SMEAR (SUREPATH) CE Patient Name: BHUPINDERLULU PINTOALEJANDRA : 1965 (Age: 57) Sex: F Institution: [facility] Location: [facility] Date of Collection: 02/03/2023 Date of Reported: 02/09/2023 10:46 Results to: Meka Cabral NP Meka Cabral NP CYTOLOGY ORDERABLES Final Resul t SEE NARRATIVE from Last 3 Months or Most Recently Relevant to Health Maintenance Insurance [facility] [employer] [phone] [place] [address] ADMINISTRATORS [facility] [employer] [facility] ADMINISTRATORS Member Subscriber Plan / Payer (Ef fective 2019-Present) Name:Alejandra Roe Relation to Subscriber:Self Name:[place]smouthLulu pintoAlejandra Payer ID:[id number] (NAIC) Type:PPO Address: [address] [facility] [employer] [facility] ADMINISTRATORS [facility] ADMINISTRATORS Member Subscriber Plan / Payer ( fective 2019-Present) Name:Lulu Roehleen Relation to Subscriber:Self Name:Lulu Roehleen Payer ID:[id number] (NAIC) Type:PPO Address: [place] [id number] [facility] ADMINISTRATORS Member Subscriber Plan / Payer ( fective 2019-Present) Name:Alejandra Roe Relation to Subscriber:Self Name:Lulu Roehleen Payer ID:[id number] (NAIC) Type:PPO Address: [place] [id number] [facility] ADMINISTRATORS Member Subscriber Plan / Payer ( fective 2019-Present) Name:Lulu Roehleen Relation to Subscriber:Self Name:Lulu Roehleen Payer ID:[id number] (NAIC) Type:PPO Address: [place] [phone] [facility] [email or web address] ADMINISTRATORS [facility] ADMINISTRATORS Care Teams Prepress Proofer Relationship Specialty Start Date End Date Vern Coronel DO [address] [place] [address] PCP - General Internal Medicine 01/01/25 Additional Source Comments The information contained in this document represents components of the legal health record. It is not the complete legal health record.[facility]
== END 2025-07-11 15:04 | disposition home or self-care (01) ==
LOC: HO.MAMMO 15:03
PROVIDERS: Visit Provider Internal Medicine Nephrology
DX: Z12.31 Encounter for screening mammogram for malignant neoplasm of breast (principal)
CPT/HCPCS: 77063; 77067

== ENCOUNTER 2025-07-28 10:21 | Outpatient (REF) | payer OTHER, SELFPAY ==
--- NOTE | ~2025-07-28 | US_ITS ---
EXAMINATION: US THYROID CLINICAL INFORMATION: E04.1. Nontoxic single thyroid nodule. COMPARISON: January 04, 2023. TECHNIQUE: Linear transducer grayscale and color Doppler examination with attention to the region of the thyroid. FINDINGS: SIZE: Measurements of the thyroid lobes and nodules are given in sagittal, anteroposterior and transverse dimensions respectively. Right Thyroid Lobe: 3.2 x 1.0 x 1.1 cm, volume 1.8 mL. Previous: 3.5 x 1.2 x 1.0 cm, volume: 2.6 cc. Parenchyma: The gland echotexture is normal. Thyroid vascularity is normal. Left Thyroid Lobe: 3.2 x 0.7 x 1.1 cm, volume 1.4 mL Previous: 3.1 x 0.7 x 1.3 cm, volume: 1.5 cc.. Parenchyma: The gland echotexture is normal. Thyroid vascularity is normal. Isthmus: 0.3 cm in maximum AP dimension. Previous: 0.2 cm Estimated total number of nodules greater than or equal to 1 cm: 0. Food Porter nodules are described as follows: 1. Location: Midportion left lobe.. Size: 0.6 x 0.3 x 0.4 cm, volume 0.04 mL. Previous: 1.0 x 0.5 x 0.5 cm, volume: 0.1 cc. Nodule characteristics: Composition: Solid (2). Echogenicity: Isoechoic (1). Shape: Not taller than wide (0). Margins: Ill-defined (0). Echogenic Foci: None (0) ACR TI-RADS total points: 3 ACR TI-RADS category: 3 US/US thyroid IMPRESSION: ACR TI RADS category 3. ACR TI-RADS RECOMMENDATION REFERENCE: Ultrasound-guided fine-needle aspiration, followup ultrasound, no further follow up. * TR1 (0 point) and TR2 (2 points): No FNA or follow up. * TR3 (3 points): FNA if more than or equal to 2.5 cm in maximum dimension, followup ultrasound in 1, 3 and 5 years if 1.5 to 2.4 cm in maximum dimension. * TR4 (4-6 points): FNA if more than or equal to 1.5 cm in maximum dimension, followup ultrasound in 1, 2, 3 and 5 years if 1 to 1.4 cm in maximum dimension. * TR5 (more than or equal to 7 points): FNA if more than or equal to 1 cm in maximum dimension, followup ultrasound every year for 5 years if 0.5 to 0.9 cm in maximum dimension. * TR3, TR4 or TR5 nodules that are below the size threshold for followup receive no follow up. Electronically signed by: Per Betancourt MD 07/28/2025 01:43 PM [facility]
--- OUTSIDE RECORDS SUMMARY | 2025-07-28 12:09 | XMS_ITS | Clinical Summary ---
Author Organization [facility] Address [address] [facility] [address] [place] [address] Phone Care Team Providers Care Shipping And Receiving Name Role Phone CoronelVern sharp Primary Care Provider [phone] Allergies No known active allergies Medications omega-3 [...] SEE NARRATIVE - 02/09/2023 10:46 AM EDT [address] [address] Counseling Services Manager: Majo Donis MD JOINERY SETTER OUT Cytology Report FINAL DIAGNOSIS A. PAP SMEAR [...] 59, 66, 68) Note: Testing performed by [employer] Onclarity HR-HPV analysis. Clinical correlation is advised. This HPV test was performed at [facility], [address] [place] [address]. This test has been FDA approved for SurePath cervical cytology specimens. The accuracy and precision of this test for all other specimen sources has been verified in the Cytopathology Laboratory of the [facility] and has not been cleared or approved by the U.S. Food and Drug Administration. Clinical correlation is advised. CLINICAL HISTORY Date of Last Menstrual Period: Not Provided Menstrual History: Unknown Other Clinical Conditions: Screening Pap SPECIMEN SOURCE A: PAP SMEAR (SUREPATH) CE Patient Name: BHUPINDERLULU PINTOALEJANDRA : 1965 (Age: 57) Sex: F Institution: [facility] Location: [facility] Date of Collection: 02/03/2023 Date of Reported: 02/09/2023 10:46 Results to: Meka Cabral NP Meka Cabral NP CYTOLOGY ORDERABLES Final Resul t SEE NARRATIVE from Last 3 Months or Most Recently Relevant to Health Maintenance Insurance [facility] [employer] [address] [place] [address] ADMINISTRATORS [facility] [email or web address] [facility] ADMINISTRATORS Member Subscriber Plan / Payer (Ef fective 2019-Present) Name:Alejandra Roe Relation to Subscriber:Self Name:BhupinderLulu pintoAlejandra Payer ID:[id number] (NAIC) Type:PPO Address: [address] [facility] [employer] [facility] ADMINISTRATORS [facility] ADMINISTRATORS Member Subscriber Plan / Payer ( fective 2019-Present) Name:Lulu Roehleen Relation to Subscriber:Self Name:Lulu Roehleen Payer ID:[id number] (NAIC) Type:PPO Address: [place] [phone] [facility] ADMINISTRATORS Member Subscriber Plan / Payer ( fective 2019-Present) Name:Alejandra Roe Relation to Subscriber:Self Name:Lulu Roehleen Payer ID:[id number] (NAIC) Type:PPO Address: [place] [phone] [facility] ADMIN[employer]RATORS Member Subscriber Plan / Payer ( fective 2019-Present) Name:Lulu Roehleen Relation to Subscriber:Self Name:Lulu Roehleen Payer ID:[id number] (NAIC) Type:PPO Address: [place] [phone] [facility] [employer] ADMINISTRATORS [facility] ADMINISTRATORS Care Teams Shipping And Receiving Relationship Specialty Start Date End Date Vern Coronel DO [address] [place] [address] PCP - General Internal Medicine 01/01/25 Additional Source Comments The information contained in this document represents components of the legal health record. It is not the complete legal health record.[facility]
== END 2025-07-28 10:22 | disposition home or self-care (01) ==
LOC: HO.US 10:21
PROVIDERS: Visit Provider Student in an Organized Health Care Education/Training Program
DX: E04.1 Nontoxic single thyroid nodule (principal)
CPT/HCPCS: 76536